=== PATIENT | female | born 1960 ===

== ENCOUNTER 2017-06-11 05:21 | Inpatient (IN) | payer MEDICARE, MEDICAID ==
[2017-06-11 05:22] VITALS: BMI 27.4
[2017-06-11] MEDS ORDERED: Sodium Chloride 0.9% 1,000 ML IV STA ×2 (05:35→14:10)
--- NOTE | 2017-06-11 05:52 | ED PDOC ---
HPI: Abdomen Time Seen by Provider: 06/11/17 05:27 Chief Complaint (Nursing): Abdominal Pain Chief Complaint (Provider): Flank Pain History Per: Patient History/Exam Limitations: no limitations Onset/Duration Of Symptoms: Hrs (1), Sudden Onset Outside of [place] travel?: No Current Symptoms Are (Timing): Still Present Location Of Pain/Discomfort: Other (Left flank pain) Quality Of Discomfort: Sharp, Stabbing Associated Symptoms: Nausea, Vomiting, Back Pain Additional Complaint(s): 56 year old female presents to ED with complaints of left flank pain x1 hour and a past medical history of multiple sclerosis, ITP, HTN, lupus, hypothyroidism, and depression. Patient notes acute left flank pain that radiates to her back and abdomen. Describes the pain as sharp and stabbing. (+) nausea and vomiting x2 episodes (non-bilious, non-bloody). PCP: Norma Li ED Scribe Attestation - Scribe Statement Scribe Attestation: Documented by Scribename acting as a scribe for Ankur Drake MD. Provider Scribe Attestation: All medical record entries made by the Scribe were at my direction and personally dictated by me. I have reviewed the chart and agree that the record accurately reflects my personal performance of the history, physical exam, medical decision making, and the department course for this patient. I have also personally directed, reviewed, and agree with the discharge instructions and disposition. Past Medical History Reviewed: Historical Data, Nursing Documentation, Vital Signs Vital Signs: Last Vital Signs Temp 98.3 F 06/11/17 05:24 Pulse 77 06/11/17 05:24 Resp 16 06/11/17 05:24 BP 123/80 06/11/17 05:24 Pulse Ox 99 06/11/17 06:34 - Medical History PMH: Anemia, Anxiety, Asthma, Back Problems, Depression, HTN, Hypercholesterolemia, Hypothyroidism, Multiple Sclerosis, Pneumonia Denies: Chronic Kidney Disease - Surgical History Surgical History: Endoscopy Denies: No Surg Hx - Family History Family History: States: Unknown Family Hx - Social History Current smoker - smoking cessation education provided: No Ex-Smoker (has not smoked in the last 12 months): No Alcohol: None Drugs: Denies - Immunization History Hx Tetanus Toxoid Vaccination: No Hx Influenza Vaccination: No Hx Pneumococcal Vaccination: No - Home Medications Home Medications: Ambulatory Orders Medication Instructions Recorded Levothyroxine 88 mcg PO DAILY 02/04/14 Hydroxychloroquine Sulfate 200 mg PO BID 03/20/15 [Plaquenil] Lyrica 100 mg PO Q8 02/29/16 Oxycodone HCl/Acetaminophen 10 - 325 mg PO Q8 PRN 02/29/16 Lisinopril [Zestril] 10 mg PO DAILY 09/29/16 Cholecalciferol (Vitamin D3) 50,000 unit PO QWK 10/13/16 [Vitamin D3] Amitriptyline [Elavil] 50 mg PO HS 10/23/16 Prednisone [Inez] 10 mg PO DAILY 10/23/16 Ibuprofen [Motrin Tab] 600 mg PO Q6 #20 tab 04/03/17 - Allergies Allergies/Adverse Reactions: Allergies Allergy/AdvReac Type Severity Reaction Status Date / Time No Known Allergies Allergy Verified 04/03/17 19:06 Review of Systems ROS Statement: Except As Marked, All Systems Reviewed And Found Negative Gastrointestinal: Positive for: Nausea, Vomiting, Abdominal Pain (pain radiates from left flank to diffusely over abdomen) Musculoskeletal: Positive for: Back Pain (left flank pain radiates to back) Physical Exam - Reviewed Nursing Documentation Reviewed: Yes Vital Signs Reviewed: Yes - Physical Exam Appears: Positive for: Non-toxic, Uncomfortable Head Exam: Positive for: ATRAUMATIC, NORMOCEPHALIC Skin: Positive for: Normal Color, Warm, Dry Eye Exam: Positive for: Normal appearance, EOMI, PERRL ENT: Positive for: Normal ENT Inspection Neck: Positive for: Normal Cardiovascular/Chest: Positive for: Regular Rate, Rhythm. Negative for: Bradycardia Respiratory: Positive for: Normal Breath Sounds. Negative for: Respiratory Distress Gastrointestinal/Abdominal: Positive for: Normal Exam, Soft. Negative for: Tenderness, Guarding, Rebound Back: Positive for: Normal Inspection. Negative for: L CVA Tenderness, R CVA Tenderness Extremity: Positive for: Normal ROM. Negative for: Deformity Neurologic/Psych: Positive for: Alert, Oriented. Negative for: Motor/Sensory Deficits - Laboratory Results Result Diagrams: 06/11/17 05:50 06/11/17 05:50 - ECG O2 Sat by Pulse Oximetry: 99 (RA) Pulse Ox Interpretation: Normal Medical Decision Making Medical Decision Makin Initial impression: acute left flank pain Initial plan: * EKG * Labs * Lipase * UPreg * UDip * NS IV * Toradol 10mg IVP * Zofran Inj 4mg IV * UA * Re-eval 0631 * CT A/P * ED OBS ADMISSION See ED OBS note for further documentation. Scribe Attestation: Documented by Ruthie Aguilar acting as a scribe for Ankur Drake MD. Scribe Attestation: All medical record entries made by the Scribe were at my direction and personally dictated by me. I have reviewed the chart and agree that the record accurately reflects my personal performance of the history, physical exam, medical decision making, and the department course for this patient. I have also personally directed, reviewed, and agree with the discharge instructions and disposition. ED OBSERVATION Date of observation admission: 06/11/17 Time of observation admission: :31 - Observation admission statement Patient is being placed in observation because:: Pending CT - Goals of Observation Goals of observation are:: CT results - Progress Note Progress Note: 06/11/17 07:00 Patient will be signed out to Dr. Hu pending CT. Disposition - Clinical Impression Clinical Impression: Abdominal pain - Patient ED Disposition Is Patient to be Admitted: Transfer of Care - Disposition Disposition: Transfer of Care Disposition Time: 06:31 Condition: FAIR Forms: [facility] ([place]) Patient Signed Over To: Gwen Hu (at 0700) Handoff Comments: Pending CT - Pt Status Changed To: Hospital Disposition Of: Observation
[2017-06-11 06:02] LABS: BASO # 0.1 K/uL (0.0-0.2); BASO % 0.5 % (0.0-2.0); EOS # 0.1 K/uL (0.0-0.7); EOS % 0.5 % (0.0-4.0); HEMATOCRIT 38.7 % (34.0-47.0); LYMPH # 1.9 K/uL (1.0-4.3); LYMPH % 12.1 % (20.0-40.0); MEAN CORPUSCULAR HGB CONC 31.7 g/dL (33.0-37.0); MEAN PLATELET VOLUME 12.2 fl (7.2-11.7); MONO # 1.4 K/uL (0.0-0.8); MONO % 8.9 % (0.0-10.0); NEUT # 12.1 K/uL (1.8-7.0); RED CELL DISTRIBUTION WIDTH 13.9 % (11.5-14.5); WHITE BLOOD COUNT 15.5 K/uL (4.8-10.8)
[2017-06-11 06:15] LABS: ALB/GLOB RATIO 1.2 (1.0-2.1); ALKALINE PHOSPHATASE 86 U/L (38-126); ALT/SGPT 55 U/L (9-52); AST/SGOT 109 U/L (14-36); BILIRUBIN,TOTAL 0.8 mg/dl (0.2-1.3); BLOOD UREA NITROGEN 7 mg/dl (7-17); CALCIUM 8.9 mg/dL (8.4-10.2); CARBON DIOXIDE 25 mmol/L (22-30); CHLORIDE 106 mmol/L (98-107); GFR AFRICAN-AMERICAN > 60; GLUCOSE,RANDOM 89 mg/dL (65-105); LIPASE 44 U/L (23-300); POTASSIUM 3.8 MMOL/L (3.6-5.0); SODIUM 140 mmol/l (132-148); TOTAL PROTEIN 6.9 G/DL (6.3-8.2)
--- NOTE | 2017-06-11 07:11 | ED PDOC ---
- Laboratory Results Result Diagrams: 06/12/17 10:30 06/12/17 10:30 - ECG O2 Sat by Pulse Oximetry: 99 (RA) Pulse Ox Interpretation: Normal Medical Decision Making Medical Decision Making: Time: 0700 --Patient transferred from Dr. Drake to al. --Pending ABD CT Scan. Time: 09:48 --Abd and pelvis CT FINDINGS: LOWER THORAX: Bibasilar atelectasis of left greater than right. May also be some concomitant mild bibasilar scarring. Rule out mild fibrosis. No effusion or basilar pneumothorax LIVER: . Liver exhibits normal size measuring approximately 16.7 cm in CC dimension. No obvious hepatic mass collection or calcification. GALLBLADDER AND BILE DUCTS: The gallbladder is physiologically distended. Wall edema and or small amount of pericholecystic fluid. Recommend followup gallbladder ultrasound. No definitive evidence of intraluminal calculi. PANCREAS: The unenhanced pancreas appears grossly unremarkable SPLEEN: Spleen is borderline enlarged measuring over 12 cm in AP dimension. And attenuation pattern without mass collection or calcification. ADRENALS: No adrenal lesions. KIDNEYS AND URETERS: Kidneys demonstrate symmetric size. No evidence of nephrolithiasis or hydronephrosis. BLADDER: Urinary bladder is incompletely distended which presumably accounts for thick- walled appearance. Rule out cystitis. REPRODUCTIVE: Unremarkable as visualized APPENDIX: What is felt to represent a normal appendix best seen on axial image number 105 - 110. No periappendiceal inflammatory changes. BOWEL: Unr evaluation of the bowel is limited due to the lack of oral contrast material. The stomach is incompletely distended which presumably accounts thick- walled appearance. Visualized loops of small bowel exhibit normal contour and caliber. No evidence of acute mechanical small bowel obstruction. Stool and air seen throughout the ascending and transverse colon suggesting mild fecal retention PERITONEUM: Unremarkable. No fluid collection. No free air. LYMPH NODES: Unremarkable. No no significant bulky/ enlarged lymph nodes. VASCULATURE: Unremarkable. No aortic aneurysm. BONES: Minor multilevel degenerative spondylosis of the lumbar and thoracic spine. OTHER FINDINGS: None. IMPRESSION: Gallbladder wall thickening/ edema versus pericholecystic fluid. Rule out acute acalculous cholecystitis. Recommend followup gallbladder ultrasound. Borderline splenomegaly. These findings were discussed with Dr. Hu at approximately 9:45 a.m. --VBG Shock Panel --Piperacillin 3.375 gm --Blood Culture --Abdomen US 1330 Discussed the case with Dr Egan who will be on consult. He agrees with the admission to medical service for IV abx and surgical intervention. Scribe Attestation: Documented by Shanika Barney, acting as a scribe for Gwen Hu MD. Provider Scribe Attestation: All medical record entries made by the Scribe were at my direction and personally dictated by me. I have reviewed the chart and agree that the record accurately reflects my personal performance of the history, physical exam, medical decision making, and the department course for this patient. I have also personally directed, reviewed, and agree with the discharge instructions and disposition. Disposition Discussed With : Phillip Liz Counseled Patient/Family Regarding: Studies Performed, Diagnosis - Clinical Impression Clinical Impression: Abdominal pain, Acute cholecystitis - POA Present On Arrival: None - Disposition Disposition: Admitted as In-Patient Disposition Time: 14:00 Condition: FAIR
[2017-06-11 08:09] LABS: RBC URINE < 1 /hpf (0-3); URINE BACTERIA RARE (<OCC); URINE BILIRUBIN NEGATIVE (NEGATIVE); URINE BLOOD NEGATIVE (NEGATIVE); URINE COLOR YELLOW (YELLOW); URINE GLUCOSE (UA) NEG (Normal); URINE KETONE NEGATIVE (NEGATIVE); URINE LEUKOCYTE ESTERASE NEG Leu/uL (Negative); URINE PROTEIN NEGATIVE (NEGATIVE); URINE UROBILINOGEN 0.2-1.0 mg/dL (0.2-1.0); WBC URINE 3 /hpf (0-5)
[2017-06-11] MEDS ORDERED: Piperacillin/Tazobact 3.375 GM in Sodium Chloride 0.9% 100 ML IVPB STA (09:48)
--- NOTE | 2017-06-11 09:49 | CT ---
PROCEDURE: CT abdomen and pelvis dated 06/11/2017 Renal HISTORY: renal colic COMPARISON: None. TECHNIQUE: Contiguous axial images of the abdomen and pe pelvis performed without oral or intravenous contrast. Coronal and Sagittal reformats generated. Radiation dose: Total exam DLP = 948.1 mGy-cm. This CT exam was performed using one or more of the following dose reduction techniques: Automated exposure control, adjustment of the mA and/or kV according to patient size, and/or use of iterative reconstruction technique. FINDINGS: LOWER THORAX: Bibasilar atelectasis of left greater than right. May also be some concomitant mild bibasilar scarring. Rule out mild fibrosis. No effusion or basilar pneumothorax LIVER: . Liver exhibits normal size measuring approximately 16.7 cm in CC dimension. No obvious hepatic mass collection or calcification. GALLBLADDER AND BILE DUCTS: The gallbladder is physiologically distended. Wall edema and or small amount of pericholecystic fluid. Recommend followup gallbladder ultrasound. No definitive evidence of intraluminal calculi. PANCREAS: The unenhanced pancreas appears grossly unremarkable SPLEEN: Spleen is borderline enlarged measuring over 12 cm in AP dimension. And attenuation pattern without mass collection or calcification. ADRENALS: No adrenal lesions. KIDNEYS AND URETERS: Kidneys demonstrate symmetric size. No evidence of nephrolithiasis or hydronephrosis. BLADDER: Urinary bladder is incompletely distended which presumably accounts for thick-walled appearance. Rule out cystitis. REPRODUCTIVE: Unremarkable as visualized APPENDIX: What is felt to represent a normal appendix best seen on axial image number [id number] 110. No periappendiceal inflammatory changes. BOWEL: Unr evaluation of the bowel is limited due to the lack of oral contrast material. The stomach is incompletely distended which presumably accounts thick-walled appearance. Visualized loops of small bowel exhibit normal contour and caliber. No evidence of acute mechanical small bowel obstruction. Stool and air seen throughout the ascending and transverse colon suggesting mild fecal retention PERITONEUM: Unremarkable. No fluid collection. No free air. LYMPH NODES: Unremarkable. No no significant bulky/ enlarged lymph nodes. VASCULATURE: Unremarkable. No aortic aneurysm. BONES: Minor multilevel degenerative spondylosis of the lumbar and thoracic spine. OTHER FINDINGS: None. IMPRESSION: Gallbladder wall thickening/ edema versus pericholecystic fluid. Rule out acute acalculous cholecystitis. Recommend followup gallbladder ultrasound. Borderline splenomegaly. These findings were discussed with Dr. Hu at approximately 9:45 a.m.
[2017-06-11] MEDS ORDERED: Piperacillin/Tazobact 3.375 gm Inj IVPB ONE (10:09)
[2017-06-11 10:11] LABS: VENOUS BLOOD GAS BASE EXCESS 2.5 mmol/L (0.0-2.0); VENOUS BLOOD GAS PCO2 53 mmHg (40-60); VENOUS BLOOD PH 7.35 (7.32-7.43)
--- NOTE | 2017-06-11 10:58 | CARD ---
APPROVED REPORT EKG Measurement Heart [id number] <Conclusion> Normal sinus rhythm Left axis deviation Nonspecific T wave abnormality Abnormal ECG
--- NOTE | 2017-06-11 14:14 | US ---
HISTORY: Right-sided flank pain. COMPARISON: None. TECHNIQUE: Sonographic evaluation of the right upper quadrant of the abdomen. FINDINGS: LIVER: Liver exhibits normal size measuring approximately 15.4 cm in CC dimension . GALLBLADDER: Gallbladder wall is thickened and edematous in appearance measuring up to 8 mm. Multiple intraluminal shadowing gallbladder calculi. While there is no sonographic Castañeda sign, the possibility of early acute cholecystitis must be excluded. COMMON BILE DUCT: Common bile duct is dilated measuring approximately 8.6 mm with multiple layering calculi. PANCREAS: Unremarkable as visualized. No mass. No ductal dilatation. RIGHT KIDNEY: Measures approximately 9.9 x 4.4 x 5.4 cm in length. Normal echogenicity. No calculus, mass, or hydronephrosis. AORTA: No aneurysmal dilatation. IVC: Unremarkable. OTHER FINDINGS: None . IMPRESSION: Multiple intraluminal gallbladder calculi. Gallbladder wall thickening and edema. Rule out early acute cholecystitis. . Dilatation common bile duct.
--- NOTE | 2017-06-11 16:22 | CP.PCM.CON ---
<Juanis Clark - Last Filed: 06/11/17 16:15> History of Present Illness - History of Present Illness History of Present Illness: General Surgery - Dr. Lester 56yo F w/ hx of Lupus, MS, Hypothyroid, HTN, and ITP, presents w/ LUQ abdominal pain radiating to the back since 2am this morning. Pt states that she woke up with the pain and it continued to get progressively worse throughout the night. She describes it as a sharp pain located in the LUQ abdomen and spreading through the rest of the abdomen, radiating to the back, 810. She had associated nausea and vomited 2x gastric contents. Pt denies ever having this pain before. She admits to chills, denies any Fevers, SOB/Chest pain, Hematemesis, Hematochezia, Dysuria, Hematuria, Diarrhea, Constipation. PMH: Lupus, MS, Hypothyroid, HTN, ITP PSH: Csection, R Wrist surgery, Colonoscopy and EGD Meds as per chart, includes prednisone daily NKDA Pt was seen in the ED. Vitals stable and wnl. Her labs significant for WBC of 15.5, Platelets 63, mildly elevated AST/ALT, otherwise unremarkable. Abdominal CT was done and showed borderline splenomegaly and a dilated GB with wall thickening. An U/S was done to further evaluate the GB and showed Stones, Wall thickening and Edema, CBD of 8.6mm and stones within the CBD. Review of Systems - Review of Systems All systems: reviewed and no additional remarkable complaints except (as per HPI ) Past Patient History - Infectious Disease Hx of Infectious Diseases: None - Past Medical History & Family History Past Medical History?: Yes - Past Social History Alcohol: None Drugs: Denies - CARDIAC Hx Cardiac Disorders: Yes - PULMONARY Hx Asthma: Yes Hx Pneumonia: Yes - NEUROLOGICAL Hx Multiple Sclerosis: Yes - HEENT Hx HEENT Problems: Yes - RENAL Hx Chronic Kidney Disease: No - ENDOCRINE/METABOLIC Hx Hypothyroidism: Yes - HEMATOLOGICAL/ONCOLOGICAL Hx Anemia: Yes - INTEGUMENTARY Hx Dermatological Problems: No - MUSCULOSKELETAL/RHEUMATOLOGICAL Hx Musculoskeletal Disorders: Yes Hx Back Pain: Yes Hx Falls: Yes Other/Comment: MS - GASTROINTESTINAL Hx Gastrointestinal Disorders: No Hx Gastroesophageal Reflux: Yes - GENITOURINARY/GYNECOLOGICAL Hx Genitourinary Disorders: No - PSYCHIATRIC Hx Anxiety: Yes Hx Depression: Yes - SURGICAL HISTORY Hx Surgeries: Yes Hx Section: Yes Hx Tubal Ligation: Yes Other/Comment: EPIDURAL - ANESTHESIA Hx Anesthesia: Yes Hx Anesthesia Reactions: No Hx Malignant Hyperthermia: No Meds Allergies/Adverse Reactions: Allergies Allergy/AdvReac Type Severity Reaction Status Date / Time No Known Allergies Allergy Verified 04/03/17 19:06 Physical Exam - Constitutional Appears: No Acute Distress - Head Exam Head Exam: ATRAUMATIC, NORMAL INSPECTION, NORMOCEPHALIC - Eye Exam Eye Exam: Normal appearance - ENT Exam ENT Exam: Mucous Membranes Dry - Respiratory Exam Respiratory Exam: NORMAL BREATHING PATTERN. absent: Respiratory Distress - Cardiovascular Exam Cardiovascular Exam: REGULAR RHYTHM - GI/Abdominal Exam GI & Abdominal Exam: Soft, Tenderness (RUQ + Castañeda's sign; Also Tender in the LUQ and L Flank w/ CVA tenderness). absent: Distended, Firm, Guarding - Extremities Exam Extremities exam: Positive for: normal inspection. Negative for: pedal edema - Back Exam Back exam: CVA tenderness (L) - Neurological Exam Neurological exam: Alert, Oriented x3 - Psychiatric Exam Psychiatric exam: Normal Affect, Normal Mood - Skin Skin Exam: Dry, Intact Results - Vital Signs Recent Vital Signs: Last Vital Signs Temp 98.8 F 06/11/17 16:11 Pulse 85 06/11/17 16:11 Resp 18 06/11/17 16:11 BP 135/87 06/11/17 16:11 Pulse Ox 99 06/11/17 15:03 - Labs Result Diagrams: 06/11/17 05:50 06/11/17 05:50 Labs: Laboratory Results - last 24 hr 06/11/17 06/11/17 07:30 10:03 pO2 28 L VBG pH 7.35 VBG pCO2 53 VBG HCO3 25.6 VBG Total CO2 30.9 H VBG O2 Sat (Calc) 60.7 VBG Base Excess 2.5 H VBG Potassium 4.1 Sodium 140.0 Chloride 109.0 H Glucose 90 Lactate 1.7 FiO2 21.0 Venous Blood Potassium 4.1 Urine Color Yellow Urine Clarity Clear Urine pH 8.0 Ur Specific [place] 1.005 Urine Protein Negative Urine Glucose (UA) Neg Urine Ketones Negative Urine Blood Negative Urine Nitrate Negative Urine Bilirubin Negative Urine Urobilinogen 0.2-1.0 Ur Leukocyte Esterase Neg Urine RBC (Auto) < 1 Urine Microscopic WBC 3 Ur Squamous Epith Cells 1 Urine Bacteria Rare - Imaging and Cardiology CT scan - abdomen Status: Image reviewed by me, Report reviewed by me US - abdomen Status: Image reviewed by me, Report reviewed by me Assessment & Plan - Assessment and Plan (Free Text) Assessment: 56 yo F w/ Lupus, MS, HTN, Hypothyroid, ITP on prednisone, w/ abdominal pain and U/S c/w cholecystitis and choledocholithiasis -Maintain NPO for now, poss. CLD tomorrow pending course -IVF hydration -IV Abx -Pain control prn and anti-emetics -Recc. GI consult for dilated CBD w/ stones seen on U/S -Hematology consult reg. the ITP and pre-op optimization -Will plan for cholecystectomy once pt. is medically optimized for surgery DW Dr. Tayler Clark PGY3 <Benji Lester - Last Filed: 06/12/17 17:16> Meds - Medications Medications: Current Medications Clonazepam (Klonopin) 1 mg PO TID PRN PRN Reason: Anxiety Duloxetine HCl (Cymbalta) 30 mg PO HS [facility] Last Admin: 06/11/17 22:39 Dose: 30 mg Ergocalciferol (Drisdol 50,000 Intl Units Cap) 1 cap PO MON [facility] Escitalopram Oxalate (Lexapro) 10 mg PO DAILY [facility] Last Admin: 06/12/17 09:58 Dose: 10 mg Home Med (Calcium Carbonate [Caltrate]) 1 tab PO DAILY [facility] Home Med (Methylnaltrexone [place] [Relistor]) 450 mg PO DAILY PRN PRN Reason: Constipation Hydroxychloroquine Sulfate (Plaquenil) 200 mg PO BID [facility] Last Admin: 06/12/17 17:12 Dose: 200 mg Piperacillin Sod/Tazobactam (Sod 3.375 gm/ Sodium Chloride) 100 mls @ 100 mls/ hr IVPB Q6 [facility] Last Admin: 06/12/17 17:12 Dose: 100 mls/hr Sodium Chloride (Sodium Chloride 0.9%) 1,000 mls @ 70 mls/hr IV .[id number] [facility] Last Admin: 06/12/17 09:58 Dose: Not Given Levothyroxine Sodium (Synthroid) 88 mcg PO 0630 [facility] Last Admin: 06/12/17 09:59 Dose: 88 mcg Lisinopril (Zestril) 10 mg PO DAILY [facility] Last Admin: 06/12/17 09:58 Dose: 10 mg Morphine Sulfate (Morphine) 2 mg IVP Q4 PRN PRN Reason: Pain, moderate (4-7) Last Admin: 06/12/17 04:00 Dose: 2 mg Multivitamins/Minerals (Therapeutic-M Tab) 1 tab PO DAILY [facility] Last Admin: 06/12/17 09:58 Dose: 1 tab Ondansetron HCl (Zofran Inj) 4 mg IVP Q4 PRN PRN Reason: Nausea/Vomiting Oxycodone HCl (Oxycodone Immediate Release Tab) 15 mg PO Q8H PRN PRN Reason: Pain, severe (8-10) Last Admin: 06/12/17 14:30 Dose: 15 mg Pantoprazole Sodium (Protonix Ec Tab) 40 mg PO DAILY [facility] Last Admin: 06/12/17 09:58 Dose: 40 mg Polyethylene Glycol (Miralax) 17 gm PO DAILY [facility] Last Admin: 06/12/17 15:12 Dose: 17 gm Prednisone (Prednisone Tab) 5 mg PO DAILY [facility] Last Admin: 06/12/17 09:58 Dose: 5 mg Pregabalin (Lyrica) 100 mg PO Q8@0600,1400,2200 [facility] Last Admin: 06/12/17 14:31 Dose: 100 mg Results - Vital Signs Recent Vital Signs: Last Vital Signs Temp 98.1 F 06/12/17 16:23 Pulse 79 06/12/17 16:23 Resp 20 06/12/17 16:23 BP 119/78 06/12/17 16:23 Pulse Ox 99 06/12/17 16:29 - Labs Result Diagrams: 06/12/17 10:30 06/12/17 10:30 Labs: Laboratory Results - last 24 hr 06/12/17 06/12/17 06/12/17 10:30 10:30 10:30 WBC 9.6 RBC 4.31 Hgb 11.3 L Hct 35.5 MCV 82.3 MCH 26.1 L MCHC 31.8 L RDW 14.1 Plt Count 45 L PT 14.3 H INR 1.4 H Sodium 136 Potassium 3.9 Chloride 107 Carbon Dioxide 20 L Anion Gap 13 BUN 8 Creatinine 0.7 Est GFR ( Amer) > 60 Est GFR (Non-Af Amer) > 60 Random Glucose 66 Calcium 7.8 L Total Bilirubin 1.4 H AST 151 H D ALT 173 H D Alkaline Phosphatase 143 H D Total Protein 5.9 L Albumin 3.2 L Globulin 2.6 Albumin/Globulin Ratio 1.2 Triglycerides 80 Cholesterol 183 LDL Cholesterol Direct 138 H HDL Cholesterol 46 Vitamin B12 809 Thyroxine (T4) 8.45 Total T3 0.872 L T3 Uptake TSH 3rd Generation 2.30 06/12/17 10:30 WBC RBC Hgb Hct MCV MCH MCHC RDW Plt Count PT INR Sodium Potassium Chloride Carbon Dioxide Anion Gap BUN Creatinine Est GFR ( Amer) Est GFR (Non-Af Amer) Random Glucose Calcium Total Bilirubin AST ALT Alkaline Phosphatase Total Protein Albumin Globulin Albumin/Globulin Ratio Triglycerides Cholesterol LDL Cholesterol Direct HDL Cholesterol Vitamin B12 818 Thyroxine (T4) 8.57 Total T3 0.709 L T3 Uptake 35.2 TSH 3rd Generation Attending/Attestation - Attestation I have personally seen and examined this patient.: Yes I have fully participated in the care of the patient.: Yes I have reviewed all pertinent clinical information: Yes Notes (Text): 06/12/17 17:14 Pt was seen and examined at bedside Agree with above note and assessment Pt with ITP and Cholelithiasis MRCP report Repeat LFTS C.w IV antibiotics Plan d.w pt in detail Risk and benefit explained in detail.
[2017-06-11] MEDS ORDERED: Sodium Chloride 0.9% 1,000 ML IV SCH (16:45)
[2017-06-11] MEDS ORDERED: METHYLNALTREXONE BROMIDE 450 MG PO PRN (18:42)
[2017-06-11] MEDS ORDERED: Ergocalciferol 50,000 Intl Units Cap PO SCH (18:45)
[2017-06-11] MEDS: oxyCODONE 5 mg Immediate Release Tab PO PRN (20:35)
[2017-06-11] MEDS: Piperacillin/Tazobact 3.375 GM in Sodium Chloride 0.9% 100 ML IVPB SCH (22:39)
[2017-06-12] MEDS: Piperacillin/Tazobact 3.375 GM in Sodium Chloride 0.9% 100 ML IVPB SCH ×4 (04:02→21:35)
[2017-06-12] MEDS: Levothyroxine 88 MCG TAB PO SCH ×2 (06:48→09:59)
[2017-06-12] MEDS: Sodium Chloride 0.9% 1,000 ML IV SCH (09:58)
[2017-06-12] MEDS: Multivitamin With Minerals Tab PO SCH (09:58)
[2017-06-12] MEDS: Pantoprazole 40 mg EC Tab PO SCH (09:58)
[2017-06-12 10:51] LABS: HEMATOCRIT 35.5 % (34.0-47.0); MEAN CELL VOLUME 82.3 fl (81.0-99.0); MEAN CORPUSCULAR HEMOGLOBIN 26.1 pg (27.0-31.0); MEAN CORPUSCULAR HGB CONC 31.8 g/dL (33.0-37.0); RED CELL DISTRIBUTION WIDTH 14.1 % (11.5-14.5); WHITE BLOOD COUNT 9.6 K/uL (4.8-10.8)
[2017-06-12 11:05] LABS: ALB/GLOB RATIO 1.2 (1.0-2.1); ALKALINE PHOSPHATASE 143 U/L (38-126); ALT/SGPT 173 U/L (9-52); AST/SGOT 151 U/L (14-36); BILIRUBIN,TOTAL 1.4 mg/dl (0.2-1.3); BLOOD UREA NITROGEN 8 mg/dl (7-17); CALCIUM 7.8 mg/dL (8.4-10.2); CARBON DIOXIDE 20 mmol/L (22-30); CHLORIDE 107 mmol/L (98-107); CHOLESTEROL 183 mg/dL (0-199); GFR AFRICAN-AMERICAN > 60; GLUCOSE,RANDOM 66 mg/dL (65-105); POTASSIUM 3.9 MMOL/L (3.6-5.0); SODIUM 136 mmol/l (132-148); TOTAL PROTEIN 5.9 G/DL (6.3-8.2)
[2017-06-12 11:21] LABS: T4 8.45 ug/dl (5.5-11.0)
[2017-06-12 11:23] LABS: T3 UPTAKE 35.2 % (23.0-41.0); T4 8.57 ug/dl (5.5-11.0)
--- NOTE | 2017-06-12 13:12 | CP.PCM.CON ---
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 Patient describes sudden onset left upper/epigastric abdominal pain radiating to back yesterday morning. Associated two episodes of bilious vomiting. Denies hematemesis, diarrhea, constipation, hematochezia, melena, unintentional weight loss, fever, chills, sweats, pruritis, or yellowing of skin /eyes. Prior EGD 09/2016 showed margie esophagitis s/p Diflucan course. Prior colonoscopy 04/2016 showed internal hemorhoids. Family- denies stomach cancer, colon cancer Social- denies tobacco, alcohol, illicit drug use Surgery- right wrist, C-sectionx2, 09/2016 left L3-5 nerve block and left sacroiliac injection Review of Systems - Review of Systems Review of Systems: 12-point review of systems negative except for as above Past Patient History - Infectious Disease Hx of Infectious Diseases: None - Past Medical History & Family History Past Medical History?: Yes - Past Social History Smoking Status: Current Some Days Smoker - CARDIAC Hx Cardiac Disorders: Yes - PULMONARY Hx Asthma: Yes Hx Pneumonia: Yes - NEUROLOGICAL Hx Multiple Sclerosis: Yes - HEENT Hx HEENT Problems: Yes - RENAL Hx Chronic Kidney Disease: No - ENDOCRINE/METABOLIC Hx Hypothyroidism: Yes - HEMATOLOGICAL/ONCOLOGICAL Hx Anemia: Yes - INTEGUMENTARY Hx Dermatological Problems: No - MUSCULOSKELETAL/RHEUMATOLOGICAL Hx Musculoskeletal Disorders: Yes Hx Back Pain: Yes Hx Falls: Yes Other/Comment: MS - GASTROINTESTINAL Hx Gastrointestinal Disorders: No Hx Gastroesophageal Reflux: Yes - GENITOURINARY/GYNECOLOGICAL Hx Genitourinary Disorders: No - PSYCHIATRIC Hx Anxiety: Yes Hx Depression: Yes Hx Substance Use: No - SURGICAL HISTORY Hx Surgeries: Yes Hx Section: Yes Hx Tubal Ligation: Yes Other/Comment: EPIDURAL - ANESTHESIA Hx Anesthesia: Yes Hx Anesthesia Reactions: No Hx Malignant Hyperthermia: No Meds Allergies/Adverse Reactions: Allergies Allergy/AdvReac Type Severity Reaction Status Date / Time No Known Allergies Allergy Verified 04/03/17 19:06 - Medications Medications: Current Medications Clonazepam (Klonopin) 1 mg PO TID PRN PRN Reason: Anxiety Duloxetine HCl (Cymbalta) 30 mg PO HS [facility] Last Admin: 06/11/17 22:39 Dose: 30 mg Ergocalciferol (Drisdol 50,000 Intl Units Cap) 1 cap PO MON [facility] Escitalopram Oxalate (Lexapro) 10 mg PO DAILY [facility] Last Admin: 06/12/17 09:58 Dose: 10 mg Home Med (Calcium Carbonate [Caltrate]) 1 tab PO DAILY [facility] Home Med (Methylnaltrexone [place] [Relistor]) 450 mg PO DAILY PRN PRN Reason: Constipation Hydroxychloroquine Sulfate (Plaquenil) 200 mg PO BID [facility] Last Admin: 06/12/17 09:56 Dose: 200 mg Piperacillin Sod/Tazobactam (Sod 3.375 gm/ Sodium Chloride) 100 mls @ 100 mls/ hr IVPB Q6 [facility] Last Admin: 06/12/17 09:57 Dose: 100 mls/hr Sodium Chloride (Sodium Chloride 0.9%) 1,000 mls @ 70 mls/hr IV .[id number] [facility] Last Admin: 06/12/17 09:58 Dose: Not Given Levothyroxine Sodium (Synthroid) 88 mcg PO 0630 [facility] Last Admin: 06/12/17 09:59 Dose: 88 mcg Lisinopril (Zestril) 10 mg PO DAILY [facility] Last Admin: 06/12/17 09:58 Dose: 10 mg Morphine Sulfate (Morphine) 2 mg IVP Q4 PRN PRN Reason: Pain, moderate (4-7) Last Admin: 06/12/17 04:00 Dose: 2 mg Multivitamins/Minerals (Therapeutic-M Tab) 1 tab PO DAILY [facility] Last Admin: 06/12/17 09:58 Dose: 1 tab Ondansetron HCl (Zofran Inj) 4 mg IVP Q4 PRN PRN Reason: Nausea/Vomiting Oxycodone HCl (Oxycodone Immediate Release Tab) 15 mg PO Q8H PRN PRN Reason: Pain, severe (8-10) Last Admin: 06/11/17 20:35 Dose: 15 mg Pantoprazole Sodium (Protonix Ec Tab) 40 mg PO DAILY [facility] Last Admin: 06/12/17 09:58 Dose: 40 mg Prednisone (Prednisone Tab) 5 mg PO DAILY [facility] Last Admin: 06/12/17 09:58 Dose: 5 mg Pregabalin (Lyrica) 100 mg PO Q8@0600,1400,2200 [facility] Last Admin: 06/12/17 06:47 Dose: 100 mg Physical Exam - Constitutional Appears: Non-toxic, No Acute Distress, Chronically Ill - Head Exam Head Exam: ATRAUMATIC, NORMOCEPHALIC - Eye Exam Eye Exam: EOMI, PERRL Pupil Exam: PERRL. absent: Miosis, Mydriatic - ENT Exam ENT Exam: Mucous Membranes Moist, Normal Oropharynx - Neck Exam Neck exam: Positive for: Full Rom, Normal Inspection - Respiratory Exam Respiratory Exam: Clear to Auscultation Bilateral. absent: Rales, Rhonchi, Wheezes - Cardiovascular Exam Cardiovascular Exam: RRR, +S1, +S2. absent: Gallop, Rubs - GI/Abdominal Exam GI & Abdominal Exam: Normal Bowel Sounds, Soft, Tenderness. absent: Distended, Firm, Guarding, Organomegaly, Rebound, Rigid Additional comments: LUQ/epigastric discomfort to palpation - Extremities Exam Extremities exam: Positive for: normal inspection. Negative for: pedal edema - Neurological Exam Neurological exam: Alert - Psychiatric Exam Psychiatric exam: Normal Affect, Normal Mood - Skin Skin Exam: Dry, Intact, Normal Color, Warm Results - Vital Signs Recent Vital Signs: Last Vital Signs Temp 99.1 F 06/12/17 09:00 Pulse 86 06/12/17 09:58 Resp 20 06/12/17 09:00 BP 114/62 06/12/17 09:58 Pulse Ox 95 06/12/17 09:00 - Labs Result Diagrams: 06/12/17 10:30 06/12/17 10:30 Labs: Laboratory Results - last 24 hr 06/12/17 06/12/17 06/12/17 10:30 10:30 10:30 WBC 9.6 RBC 4.31 Hgb 11.3 L Hct 35.5 MCV 82.3 MCH 26.1 L MCHC 31.8 L RDW 14.1 Plt Count 45 L PT 14.3 H INR 1.4 H Sodium 136 Potassium 3.9 Chloride 107 Carbon Dioxide 20 L Anion Gap 13 BUN 8 Creatinine 0.7 Est GFR ( Amer) > 60 Est GFR (Non-Af Amer) > 60 Random Glucose 66 Calcium 7.8 L Total Bilirubin 1.4 H AST 151 H D ALT 173 H D Alkaline Phosphatase 143 H D Total Protein 5.9 L Albumin 3.2 L Globulin 2.6 Albumin/Globulin Ratio 1.2 Triglycerides 80 Cholesterol 183 LDL Cholesterol Direct 138 H HDL Cholesterol 46 Vitamin B12 809 Thyroxine (T4) 8.45 Total T3 0.872 L T3 Uptake TSH 3rd Generation 2.30 06/12/17 10:30 WBC RBC Hgb Hct MCV MCH MCHC RDW Plt Count PT INR Sodium Potassium Chloride Carbon Dioxide Anion Gap BUN Creatinine Est GFR ( Amer) Est GFR (Non-Af Amer) Random Glucose Calcium Total Bilirubin AST ALT Alkaline Phosphatase Total Protein Albumin Globulin Albumin/Globulin Ratio Triglycerides Cholesterol LDL Cholesterol Direct HDL Cholesterol Vitamin B12 818 Thyroxine (T4) 8.57 Total T3 0.709 L T3 Uptake 35.2 TSH 3rd Generation Assessment & Plan - Assessment and Plan (Free Text) Assessment: 56 year old female with history of Hypertension, Multiple sclerosis, Hypothyroidism, Lupus on Plaquenil, and ITP on Prednisone presenting with abdominal pain. Prior EGD 09/2016 showed margie esophagitis s/p Diflucan course. Active treatment of calculous cholecystitis complicated by choledocholithiasis on CT A/P and Ultrasound. Prior colonoscopy 04/2016 showed internal hemorrhoids. Plan: >MRCP reviewed- sludge/calculi in CBD >awaiting final read of MRCP >continue Zosyn >clear liquid diet as tolerated >tentative plan for EUS/ERCP Wednesday at [facility] >will require cholecystectomy- surgery managing >daily LFTs, iNR >low platelets, held one pool of platelets to transfuse wednesday morning >monitor hemodynamics >will follow clinical course <Nga NUNEZ,Konstantin - Last Filed: 06/12/17 18:20> Meds - Medications Medications: Current Medications Clonazepam (Klonopin) 1 mg PO TID PRN PRN Reason: Anxiety Duloxetine HCl (Cymbalta) 30 mg PO HS [facility] Last Admin: 06/11/17 22:39 Dose: 30 mg Ergocalciferol (Drisdol 50,000 Intl Units Cap) 1 cap PO MON [facility] Escitalopram Oxalate (Lexapro) 10 mg PO DAILY [facility] Last Admin: 06/12/17 09:58 Dose: 10 mg Home Med (Calcium Carbonate [Caltrate]) 1 tab PO DAILY [facility] Home Med (Methylnaltrexone [place] [Relistor]) 450 mg PO DAILY PRN PRN Reason: Constipation Hydroxychloroquine Sulfate (Plaquenil) 200 mg PO BID [facility] Last Admin: 06/12/17 17:12 Dose: 200 mg Piperacillin Sod/Tazobactam (Sod 3.375 gm/ Sodium Chloride) 100 mls @ 100 mls/ hr IVPB Q6 [facility] Last Admin: 06/12/17 17:12 Dose: 100 mls/hr Sodium Chloride (Sodium Chloride 0.9%) 1,000 mls @ 70 mls/hr IV .[id number] [facility] Last Admin: 06/12/17 09:58 Dose: Not Given Levothyroxine Sodium (Synthroid) 88 mcg PO 0630 [facility] Last Admin: 06/12/17 09:59 Dose: 88 mcg Lisinopril (Zestril) 10 mg PO DAILY [facility] Last Admin: 06/12/17 09:58 Dose: 10 mg Morphine Sulfate (Morphine) 2 mg IVP Q4 PRN PRN Reason: Pain, moderate (4-7) Last Admin: 06/12/17 04:00 Dose: 2 mg Multivitamins/Minerals (Therapeutic-M Tab) 1 tab PO DAILY [facility] Last Admin: 06/12/17 09:58 Dose: 1 tab Ondansetron HCl (Zofran Inj) 4 mg IVP Q4 PRN PRN Reason: Nausea/Vomiting Oxycodone HCl (Oxycodone Immediate Release Tab) 15 mg PO Q8H PRN PRN Reason: Pain, severe (8-10) Last Admin: 06/12/17 14:30 Dose: 15 mg Pantoprazole Sodium (Protonix Ec Tab) 40 mg PO DAILY [facility] Last Admin: 06/12/17 09:58 Dose: 40 mg Polyethylene Glycol (Miralax) 17 gm PO DAILY [facility] Last Admin: 06/12/17 15:12 Dose: 17 gm Prednisone (Prednisone Tab) 5 mg PO DAILY [facility] Last Admin: 06/12/17 09:58 Dose: 5 mg Pregabalin (Lyrica) 100 mg PO Q8@0600,1400,2200 [facility] Last Admin: 06/12/17 14:31 Dose: 100 mg Results - Vital Signs Recent Vital Signs: Last Vital Signs Temp 98.1 F 06/12/17 16:23 Pulse 79 06/12/17 16:23 Resp 20 06/12/17 16:23 BP 119/78 06/12/17 16:23 Pulse Ox 99 06/12/17 16:29 - Labs Result Diagrams: 06/12/17 10:30 06/12/17 10:30 Labs: Laboratory Results - last 24 hr 06/12/17 06/12/17 06/12/17 10:30 10:30 10:30 WBC 9.6 RBC 4.31 Hgb 11.3 L Hct 35.5 MCV 82.3 MCH 26.1 L MCHC 31.8 L RDW 14.1 Plt Count 45 L PT 14.3 H INR 1.4 H Sodium 136 Potassium 3.9 Chloride 107 Carbon Dioxide 20 L Anion Gap 13 BUN 8 Creatinine 0.7 Est GFR ( Amer) > 60 Est GFR (Non-Af Amer) > 60 Random Glucose 66 Calcium 7.8 L Total Bilirubin 1.4 H AST 151 H D ALT 173 H D Alkaline Phosphatase 143 H D Total Protein 5.9 L Albumin 3.2 L Globulin 2.6 Albumin/Globulin Ratio 1.2 Triglycerides 80 Cholesterol 183 LDL Cholesterol Direct 138 H HDL Cholesterol 46 Vitamin B12 809 Thyroxine (T4) 8.45 Total T3 0.872 L T3 Uptake TSH 3rd Generation 2.30 06/12/17 10:30 WBC RBC Hgb Hct MCV MCH MCHC RDW Plt Count PT INR Sodium Potassium Chloride Carbon Dioxide Anion Gap BUN Creatinine Est GFR ( Amer) Est GFR (Non-Af Amer) Random Glucose Calcium Total Bilirubin AST ALT Alkaline Phosphatase Total Protein Albumin Globulin Albumin/Globulin Ratio Triglycerides Cholesterol LDL Cholesterol Direct HDL Cholesterol Vitamin B12 818 Thyroxine (T4) 8.57 Total T3 0.709 L T3 Uptake 35.2 TSH 3rd Generation Attending/Attestation - Attestation I have personally seen and examined this patient.: Yes I have fully participated in the care of the patient.: Yes I have reviewed all pertinent clinical information: Yes Notes (Text): 06/12/17 18:18 Patient seen with KELLY napier on rounds. Known to me from outpatient visits. In a nutshell this is a 56 year old female with history of Hypertension, Multiple sclerosis, Hypothyroidism, Lupus on Plaquenil, and ITP on Prednisone presenting with abdominal pain s/p EGD 09/2016 showed margie esophagitis s/p two week course of Diflucan. Currently imaging concerning for choledocholithaisis pending MRCP formal read. Sludge and calculi on imaging. Daily LFT and lipase. Will schedule EUS/ ERCP for Wednesday. Clear liquid diet. Will continue antibiotics
[2017-06-12] MEDS: oxyCODONE 5 mg Immediate Release Tab PO PRN (14:30)
[2017-06-12] MEDS: POLYETHYLENE GLYCOL 3350 17 GM/Dose PACKET PO SCH (15:12)
--- NOTE | 2017-06-12 18:36 | CP.PCM.PN ---
<Sammy Ortiz - Last Filed: 06/12/17 18:34> Subjective - Date & Time of Evaluation Date of Evaluation: 06/12/17 Time of Evaluation: 18:35 - Subjective Subjective: Surgery Pt s&e. NAEON. Denies F/C/N/V/D/Cp/SOB. + amb, + void. Pt is thirsty. Objective - Vital Signs/Intake and Output Vital Signs (last 24 hours): Temp Pulse Resp BP Pulse Ox 98.1 F 79 20 119/78 99 06/12/17 16:23 06/12/17 16:23 06/12/17 16:23 06/12/17 16:23 06/12/17 16:29 - Medications Medications: Current Medications Clonazepam (Klonopin) 1 mg PO TID PRN PRN Reason: Anxiety Duloxetine HCl (Cymbalta) 30 mg PO HS [facility] Last Admin: 06/11/17 22:39 Dose: 30 mg Ergocalciferol (Drisdol 50,000 Intl Units Cap) 1 cap PO MON [facility] Escitalopram Oxalate (Lexapro) 10 mg PO DAILY [facility] Last Admin: 06/12/17 09:58 Dose: 10 mg Home Med (Calcium Carbonate [Caltrate]) 1 tab PO DAILY [facility] Home Med (Methylnaltrexone [place] [Relistor]) 450 mg PO DAILY PRN PRN Reason: Constipation Hydroxychloroquine Sulfate (Plaquenil) 200 mg PO BID [facility] Last Admin: 06/12/17 17:12 Dose: 200 mg Piperacillin Sod/Tazobactam (Sod 3.375 gm/ Sodium Chloride) 100 mls @ 100 mls/ hr IVPB Q6 [facility] Last Admin: 06/12/17 17:12 Dose: 100 mls/hr Sodium Chloride (Sodium Chloride 0.9%) 1,000 mls @ 70 mls/hr IV .[id number] [facility] Last Admin: 06/12/17 09:58 Dose: Not Given Levothyroxine Sodium (Synthroid) 88 mcg PO 0630 [facility] Last Admin: 06/12/17 09:59 Dose: 88 mcg Lisinopril (Zestril) 10 mg PO DAILY [facility] Last Admin: 06/12/17 09:58 Dose: 10 mg Morphine Sulfate (Morphine) 2 mg IVP Q4 PRN PRN Reason: Pain, moderate (4-7) Last Admin: 06/12/17 04:00 Dose: 2 mg Multivitamins/Minerals (Therapeutic-M Tab) 1 tab PO DAILY [facility] Last Admin: 06/12/17 09:58 Dose: 1 tab Ondansetron HCl (Zofran Inj) 4 mg IVP Q4 PRN PRN Reason: Nausea/Vomiting Oxycodone HCl (Oxycodone Immediate Release Tab) 15 mg PO Q8H PRN PRN Reason: Pain, severe (8-10) Last Admin: 06/12/17 14:30 Dose: 15 mg Pantoprazole Sodium (Protonix Ec Tab) 40 mg PO DAILY [facility] Last Admin: 06/12/17 09:58 Dose: 40 mg Polyethylene Glycol (Miralax) 17 gm PO DAILY [facility] Last Admin: 06/12/17 15:12 Dose: 17 gm Prednisone (Prednisone Tab) 5 mg PO DAILY [facility] Last Admin: 06/12/17 09:58 Dose: 5 mg Pregabalin (Lyrica) 100 mg PO Q8@0600,1400,2200 [facility] Last Admin: 06/12/17 14:31 Dose: 100 mg - Labs Labs: 06/12/17 10:30 06/12/17 10:30 PT 14.3 Seconds (9.8-13.1) H 06/12/17 10:30 INR 1.4 (0.9-1.2) H 06/12/17 10:30 - Constitutional Appears: Non-toxic - Head Exam Head Exam: ATRAUMATIC, NORMAL INSPECTION, NORMOCEPHALIC - Eye Exam Eye Exam: EOMI, Normal appearance, PERRL Pupil Exam: NORMAL ACCOMODATION, PERRL - ENT Exam ENT Exam: Mucous Membranes Moist, Normal Exam - Neck Exam Neck Exam: Full ROM, Normal Inspection. absent: Lymphadenopathy - Respiratory Exam Respiratory Exam: Clear to Ausculation Bilateral, NORMAL BREATHING PATTERN - Cardiovascular Exam Cardiovascular Exam: REGULAR RHYTHM, +S1, +S2. absent: Murmur - GI/Abdominal Exam GI & Abdominal Exam: Soft, Tenderness, Normal Bowel Sounds. absent: Distended, Firm, Guarding, Rigid Additional comments: Epigastris/RUQ TTP. - Exam Exam: NORMAL INSPECTION - Extremities Exam Extremities Exam: Full ROM, Normal Capillary Refill, Normal Inspection. 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 the ITP and pre-op optimization -Will plan for cholecystectomy once pt. is medically optimized for surgery DW Dr. Lester <Benji Lester - Last Filed: 06/12/17 21:09> Objective - Vital Signs/Intake and Output Vital Signs (last 24 hours): Temp Pulse Resp BP Pulse Ox 98.1 F 79 20 119/78 99 06/12/17 16:23 06/12/17 16:23 06/12/17 16:23 06/12/17 16:23 06/12/17 16:29 - Medications Medications: Current Medications Clonazepam (Klonopin) 1 mg PO TID PRN PRN Reason: Anxiety Duloxetine HCl (Cymbalta) 30 mg PO HS [facility] Last Admin: 06/11/17 22:39 Dose: 30 mg Ergocalciferol (Drisdol 50,000 Intl Units Cap) 1 cap PO MON [facility] Escitalopram Oxalate (Lexapro) 10 mg PO DAILY [facility] Last Admin: 06/12/17 09:58 Dose: 10 mg Home Med (Calcium Carbonate [Caltrate]) 1 tab PO DAILY [facility] Home Med (Methylnaltrexone [place] [Relistor]) 450 mg PO DAILY PRN PRN Reason: Constipation Hydroxychloroquine Sulfate (Plaquenil) 200 mg PO BID [facility] Last Admin: 06/12/17 17:12 Dose: 200 mg Piperacillin Sod/Tazobactam (Sod 3.375 gm/ Sodium Chloride) 100 mls @ 100 mls/ hr IVPB Q6 [facility] Last Admin: 06/12/17 17:12 Dose: 100 mls/hr Sodium Chloride (Sodium Chloride 0.9%) 1,000 mls @ 70 mls/hr IV .[id number] [facility] Last Admin: 06/12/17 09:58 Dose: Not Given Levothyroxine Sodium (Synthroid) 88 mcg PO 0630 [facility] Last Admin: 06/12/17 09:59 Dose: 88 mcg Lisinopril (Zestril) 10 mg PO DAILY [facility] Last Admin: 06/12/17 09:58 Dose: 10 mg Morphine Sulfate (Morphine) 2 mg IVP Q4 PRN PRN Reason: Pain, moderate (4-7) Last Admin: 06/12/17 04:00 Dose: 2 mg Multivitamins/Minerals (Therapeutic-M Tab) 1 tab PO DAILY [facility] Last Admin: 06/12/17 09:58 Dose: 1 tab Ondansetron HCl (Zofran Inj) 4 mg IVP Q4 PRN PRN Reason: Nausea/Vomiting Oxycodone HCl (Oxycodone Immediate Release Tab) 15 mg PO Q8H PRN PRN Reason: Pain, severe (8-10) Last Admin: 06/12/17 14:30 Dose: 15 mg Pantoprazole Sodium (Protonix Ec Tab) 40 mg PO DAILY [facility] Last Admin: 06/12/17 09:58 Dose: 40 mg Polyethylene Glycol (Miralax) 17 gm PO DAILY [facility] Last Admin: 06/12/17 15:12 Dose: 17 gm Prednisone (Prednisone Tab) 5 mg PO DAILY [facility] Last Admin: 06/12/17 09:58 Dose: 5 mg Pregabalin (Lyrica) 100 mg PO Q8@0600,1400,2200 [facility] Last Admin: 06/12/17 14:31 Dose: 100 mg - Labs Labs: 06/12/17 10:30 06/12/17 10:30 PT 14.3 Seconds (9.8-13.1) H 06/12/17 10:30 INR 1.4 (0.9-1.2) H 06/12/17 10:30 APTT 32.6 Seconds (25.6-37.1) 06/12/17 18:45 Attending/Attestation - Attestation I have personally seen and examined this patient.: Yes I have fully participated in the care of the patient.: Yes I have reviewed all pertinent clinical information, including history, physical exam and plan: Yes Notes (Text): 06/12/17 21:09 Pt was seen and examined at bedside Agree with above note and assessment Pt with Cholelithiasis and CBD stone ERCP Repeat LFTs IV antibiotics Serial Abdominal exam Plan d.w pt in detail Risk and benefit explained in detail.
--- NOTE | 2017-06-12 21:06 | HP ---
CHIEF COMPLAINT: Abdominal pain. HISTORY OF PRESENT ILLNESS: This is a 56-year-old female with multiple medical problems including multiple sclerosis, hypothyroidism, ITP, arthritis, and obesity, who was having abdominal pain for a few days which got worse, so the patient was brought to emergency room and was found to have acute cholecystitis, and was admitted for further management. REVIEW OF SYSTEMS: Positive for abdominal pain and nauseous feeling. Review of systems otherwise is negative for headache, dizziness, syncope, loss of consciousness, chest pain, shortness of breath, diarrhea, constipation, or any new joint or extremity pain. Review of systems also is positive for the patient's chronic medical problem without any acute change in them. Review of system of all other organ system is unremarkable. PAST MEDICAL HISTORY: Significant for hypothyroidism, morbid obesity, multiple sclerosis, ITP. PAST SURGICAL HISTORY: Unremarkable. PERSONAL HISTORY: The patient is currently nonsmoker, nondrinker. No substance abuse. MEDICATIONS: The patient is on multiple medications which are as per reconciliation sheet which was reviewed and ordered. ALLERGIES: The patient is not allergic to any medications. FAMILY HISTORY: Noncontributory. PHYSICAL EXAMINATION: GENERAL: Well-built well-nourished overweight 56-year-old female, in no acute distress. VITAL SIGNS: Temperature afebrile, pulse 99, respirations 17, blood pressure 146/76. HEENT: Pupils are reactive to light. No nystagmus. Normocephalic. Atraumatic scalp. NECK: No JVD. No thyromegaly. No lymphadenopathy. HEART: S1 and S2 normal and regular. No significant murmur, gallop, or rub is heard. LUNGS: Exam shows good bilateral air exchange. No rales or rhonchi. ABDOMEN: The patient has right upper quadrant tenderness. Positive sign of acute cholecystitis. No sign of acute abdomen. No guarding. No rigidity. No rebound. Bowel sounds are plus. EXTREMITIES: No edema. No calf swelling. No tenderness. No acute ischemia. HAMMER ADJUSTER: Essentially unchanged from the patient's initial exam and there is no sign of any acute gross focal motor, sensory, or neurological deficit. DIAGNOSTIC DATA: Available diagnostic data reviewed. CAT scan of the abdomen and ultrasound are consistent with acute cholecystitis. WBC count is 15. ADMITTING IMPRESSION: Acute cholecystitis, hypothyroidism, multiple sclerosis, idiopathic thrombocytopenic purpura, obesity. PLAN: As ordered. Case and plan discussed with the patient. Phillip Liz MD
[2017-06-13] MEDS: oxyCODONE 5 mg Immediate Release Tab PO PRN (00:20)
[2017-06-13] MEDS: Sodium Chloride 0.9% 1,000 ML IV SCH ×2 (00:23→16:24)
[2017-06-13] MEDS: Piperacillin/Tazobact 3.375 GM in Sodium Chloride 0.9% 100 ML IVPB SCH ×4 (04:58→21:24)
[2017-06-13] MEDS: Levothyroxine 88 MCG TAB PO SCH (06:54)
[2017-06-13 08:14] LABS: HEMATOCRIT 34.3 % (34.0-47.0); MEAN CORPUSCULAR HEMOGLOBIN 26.5 pg (27.0-31.0); MEAN CORPUSCULAR HGB CONC 31.9 g/dL (33.0-37.0); RED CELL DISTRIBUTION WIDTH 14.1 % (11.5-14.5); WHITE BLOOD COUNT 6.4 K/uL (4.8-10.8)
[2017-06-13 08:37] LABS: ALB/GLOB RATIO 1.1 (1.0-2.1); ALKALINE PHOSPHATASE 136 U/L (38-126); ALT/SGPT 140 U/L (9-52); AST/SGOT 107 U/L (14-36); BILIRUBIN,TOTAL 0.7 mg/dl (0.2-1.3); BLOOD UREA NITROGEN 6 mg/dl (7-17); CALCIUM 7.6 mg/dL (8.4-10.2); CARBON DIOXIDE 22 mmol/L (22-30); CHLORIDE 110 mmol/L (98-107); GFR AFRICAN-AMERICAN > 60; GLUCOSE,RANDOM 88 mg/dL (65-105); LIPASE 28 U/L (23-300); POTASSIUM 3.7 MMOL/L (3.6-5.0); SODIUM 138 mmol/l (132-148); TOTAL PROTEIN 6.1 G/DL (6.3-8.2)
--- NOTE | 2017-06-13 09:31 | CP.PCM.PN ---
<Sammy Ortiz - Last Filed: 06/13/17 09:29> Subjective - Date & Time of Evaluation Date of Evaluation: 06/13/17 Time of Evaluation: 09:29 - Subjective Subjective: Surgery Pt s&e. NAEON. Denies F/C/N/V/D/CP/SOB. Tolerating diet. Pain controlled. + amb , + void Objective - Vital Signs/Intake and Output Vital Signs (last 24 hours): Temp Pulse Resp BP Pulse Ox 97.9 F 68 17 115/77 98 06/13/17 07:35 06/13/17 07:35 06/13/17 07:35 06/13/17 07:35 06/13/17 07:35 - Medications Medications: Current Medications Clonazepam (Klonopin) 1 mg PO TID PRN PRN Reason: Anxiety Duloxetine HCl (Cymbalta) 30 mg PO HS [facility] Last Admin: 06/12/17 21:35 Dose: 30 mg Ergocalciferol (Drisdol 50,000 Intl Units Cap) 1 cap PO MON [facility] Escitalopram Oxalate (Lexapro) 10 mg PO DAILY [facility] Last Admin: 06/12/17 09:58 Dose: 10 mg Home Med (Calcium Carbonate [Caltrate]) 1 tab PO DAILY [facility] Home Med (Methylnaltrexone [place] [Relistor]) 450 mg PO DAILY PRN PRN Reason: Constipation Hydroxychloroquine Sulfate (Plaquenil) 200 mg PO BID [facility] Last Admin: 06/12/17 17:12 Dose: 200 mg Piperacillin Sod/Tazobactam (Sod 3.375 gm/ Sodium Chloride) 100 mls @ 100 mls/ hr IVPB Q6 [facility] Last Admin: 06/13/17 04:58 Dose: 100 mls/hr Sodium Chloride (Sodium Chloride 0.9%) 1,000 mls @ 70 mls/hr IV .[id number] [facility] Last Admin: 06/13/17 00:23 Dose: 70 mls/hr Levothyroxine Sodium (Synthroid) 88 mcg PO DAILY@0630 [facility] Last Admin: 06/13/17 06:54 Dose: 88 mcg Lisinopril (Zestril) 10 mg PO DAILY [facility] Last Admin: 06/12/17 09:58 Dose: 10 mg Morphine Sulfate (Morphine) 2 mg IVP Q4 PRN PRN Reason: Pain, moderate (4-7) Last Admin: 06/12/17 04:00 Dose: 2 mg Multivitamins/Minerals (Therapeutic-M Tab) 1 tab PO DAILY [facility] Last Admin: 06/12/17 09:58 Dose: 1 tab Ondansetron HCl (Zofran Inj) 4 mg IVP Q4 PRN PRN Reason: Nausea/Vomiting Oxycodone HCl (Oxycodone Immediate Release Tab) 15 mg PO Q8H PRN PRN Reason: Pain, severe (8-10) Last Admin: 06/13/17 00:20 Dose: 15 mg Pantoprazole Sodium (Protonix Ec Tab) 40 mg PO DAILY [facility] Last Admin: 06/12/17 09:58 Dose: 40 mg Polyethylene Glycol (Miralax) 17 gm PO DAILY [facility] Last Admin: 06/12/17 15:12 Dose: 17 gm Prednisone (Prednisone Tab) 5 mg PO DAILY [facility] Last Admin: 06/12/17 09:58 Dose: 5 mg Pregabalin (Lyrica) 100 mg PO Q8@0600,1400,2200 [facility] Last Admin: 06/13/17 06:54 Dose: 100 mg - Labs Labs: 06/13/17 06:00 06/13/17 06:00 PT 13.3 Seconds (9.8-13.1) H 06/13/17 06:00 INR 1.3 (0.9-1.2) H 06/13/17 06:00 APTT 32.6 Seconds (25.6-37.1) 06/12/17 18:45 - Constitutional Appears: No Acute Distress - Head Exam Head Exam: ATRAUMATIC, NORMAL INSPECTION, NORMOCEPHALIC - Eye Exam Eye Exam: EOMI, Normal appearance, PERRL Pupil Exam: NORMAL ACCOMODATION, PERRL - ENT Exam ENT Exam: Mucous Membranes Moist, Normal Exam - Neck Exam Neck Exam: Full ROM, Normal Inspection. absent: Lymphadenopathy - Respiratory Exam Respiratory Exam: Clear to Ausculation Bilateral, NORMAL BREATHING PATTERN - Cardiovascular Exam Cardiovascular Exam: REGULAR RHYTHM, +S1, +S2. absent: Murmur - GI/Abdominal Exam GI & Abdominal Exam: Soft, Normal Bowel Sounds. absent: Tenderness - Rectal Exam Rectal Exam: NORMAL INSPECTION - Exam Exam: NORMAL INSPECTION - Extremities Exam Extremities Exam: Full ROM, Normal Capillary Refill, Normal Inspection. 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 the ITP and pre-op optimization -Will plan for cholecystectomy once pt. is medically optimized for surgery DW Dr. Lester <Benji Lester - Last Filed: 06/13/17 14:10> Objective - Vital Signs/Intake and Output Vital Signs (last 24 hours): Temp Pulse Resp BP Pulse Ox 97.9 F 68 17 115/77 98 06/13/17 07:35 06/13/17 07:35 06/13/17 07:35 06/13/17 10:14 06/13/17 07:35 - Medications Medications: Current Medications Clonazepam (Klonopin) 1 mg PO TID PRN PRN Reason: Anxiety Duloxetine HCl (Cymbalta) 30 mg PO HS [facility] Last Admin: 06/12/17 21:35 Dose: 30 mg Ergocalciferol (Drisdol 50,000 Intl Units Cap) 1 cap PO MON [facility] Escitalopram Oxalate (Lexapro) 10 mg PO DAILY [facility] Last Admin: 06/13/17 10:09 Dose: 10 mg Home Med (Calcium Carbonate [Caltrate]) 1 tab PO DAILY [facility] Home Med (Methylnaltrexone [place] [Relistor]) 450 mg PO DAILY PRN PRN Reason: Constipation Hydroxychloroquine Sulfate (Plaquenil) 200 mg PO BID [facility] Last Admin: 06/13/17 10:09 Dose: 200 mg Piperacillin Sod/Tazobactam (Sod 3.375 gm/ Sodium Chloride) 100 mls @ 100 mls/ hr IVPB Q6 [facility] Last Admin: 06/13/17 10:11 Dose: 100 mls/hr Sodium Chloride (Sodium Chloride 0.9%) 1,000 mls @ 70 mls/hr IV .[id number] [facility] Last Admin: 06/13/17 00:23 Dose: 70 mls/hr Levothyroxine Sodium (Synthroid) 88 mcg PO DAILY@0630 [facility] Last Admin: 06/13/17 06:54 Dose: 88 mcg Lisinopril (Zestril) 10 mg PO DAILY [facility] Last Admin: 06/13/17 10:14 Dose: 10 mg Morphine Sulfate (Morphine) 2 mg IVP Q4 PRN PRN Reason: Pain, moderate (4-7) Last Admin: 06/12/17 04:00 Dose: 2 mg Multivitamins/Minerals (Therapeutic-M Tab) 1 tab PO DAILY [facility] Last Admin: 06/13/17 10:09 Dose: 1 tab Ondansetron HCl (Zofran Inj) 4 mg IVP Q4 PRN PRN Reason: Nausea/Vomiting Oxycodone HCl (Oxycodone Immediate Release Tab) 15 mg PO Q8H PRN PRN Reason: Pain, severe (8-10) Last Admin: 06/13/17 00:20 Dose: 15 mg Pantoprazole Sodium (Protonix Ec Tab) 40 mg PO DAILY [facility] Last Admin: 06/13/17 10:09 Dose: 40 mg Polyethylene Glycol (Miralax) 17 gm PO DAILY [facility] Last Admin: 06/13/17 10:09 Dose: 17 gm Prednisone (Prednisone Tab) 5 mg PO DAILY [facility] Last Admin: 06/13/17 10:10 Dose: 5 mg Pregabalin (Lyrica) 100 mg PO Q8@0600,1400,2200 [facility] Last Admin: 06/13/17 14:02 Dose: 100 mg - Labs Labs: 06/13/17 06:00 06/13/17 06:00 PT 13.3 Seconds (9.8-13.1) H 06/13/17 06:00 INR 1.3 (0.9-1.2) H 06/13/17 06:00 APTT 32.6 Seconds (25.6-37.1) 06/12/17 18:45 Attending/Attestation - Attestation I have personally seen and examined this patient.: Yes I have fully participated in the care of the patient.: Yes I have reviewed all pertinent clinical information, including history, physical exam and plan: Yes Notes (Text): 06/13/17 14:08 Pt was seen and examined at bedside Agree with above note and assessment Pt with Cholelithiasis and Choledocholithiasis ERCP tomorrow Repeat LFTs and Lipase NPO, IVF IV antibiotics Plan d/w pt in detail Risk and benefit explained in detail.
[2017-06-13] MEDS: POLYETHYLENE GLYCOL 3350 17 GM/Dose PACKET PO SCH (10:09)
[2017-06-13] MEDS: Pantoprazole 40 mg EC Tab PO SCH (10:09)
[2017-06-13] MEDS: Multivitamin With Minerals Tab PO SCH (10:09)
--- NOTE | 2017-06-13 11:43 | PN ---
DATE: 06/13/2017 SUBJECTIVE: The patient was seen and examined. Interim events noted. Consults noted and appreciated. Gastroenterology and surgical followup and intervention noted and appreciated. The patient remains in regular medical floor. The patient feels okay. Abdominal pain resolved. No chest pain. No shortness of breath. PHYSICAL EXAMINATION: GENERAL: The patient is in no acute distress. VITAL SIGNS: Stable. HEART: S1 and S2 normal and regular. LUNGS: Show good bilateral air exchange. ABDOMEN: The patient still has right upper quadrant tenderness, although it is better and only present on deep palpation. No sign of acute abdomen. No guarding. No rigidity. No rebound. Bowel sounds are present and normal. EXTREMITIES: No edema. No calf swelling. No tenderness. No acute ischemia. CENTRAL NERVOUS SYSTEM: Essentially unchanged. DIAGNOSTIC DATA: Available diagnostic data reviewed. IMPRESSION: Overall, the patient's general medical condition is slowly improved. Platelet count still remains low. PLAN: As ordered. Case and plan was discussed with the patient. Phillip Liz MD
--- NOTE | 2017-06-13 12:20 | CP.PCM.PN ---
Subjective - Date & Time of Evaluation Date of Evaluation: 06/13/17 Time of Evaluation: 12:00 - Subjective Subjective: patient seen at bedside. Ambulating. Pain is better. Denies nausea, vomiting and fever, chills. Tolerating clear liquid diet Objective - Vital Signs/Intake and Output Vital Signs (last 24 hours): Temp Pulse Resp BP Pulse Ox 97.9 F 68 17 115/77 98 06/13/17 07:35 06/13/17 07:35 06/13/17 07:35 06/13/17 10:14 06/13/17 07:35 - Medications Medications: Current Medications Clonazepam (Klonopin) 1 mg PO TID PRN PRN Reason: Anxiety Duloxetine HCl (Cymbalta) 30 mg PO HS [facility] Last Admin: 06/12/17 21:35 Dose: 30 mg Ergocalciferol (Drisdol 50,000 Intl Units Cap) 1 cap PO MON [facility] Escitalopram Oxalate (Lexapro) 10 mg PO DAILY [facility] Last Admin: 06/13/17 10:09 Dose: 10 mg Home Med (Calcium Carbonate [Caltrate]) 1 tab PO DAILY [facility] Home Med (Methylnaltrexone [place] [Relistor]) 450 mg PO DAILY PRN PRN Reason: Constipation Hydroxychloroquine Sulfate (Plaquenil) 200 mg PO BID [facility] Last Admin: 06/13/17 10:09 Dose: 200 mg Piperacillin Sod/Tazobactam (Sod 3.375 gm/ Sodium Chloride) 100 mls @ 100 mls/ hr IVPB Q6 [facility] Last Admin: 06/13/17 10:11 Dose: 100 mls/hr Sodium Chloride (Sodium Chloride 0.9%) 1,000 mls @ 70 mls/hr IV .[id number] [facility] Last Admin: 06/13/17 00:23 Dose: 70 mls/hr Levothyroxine Sodium (Synthroid) 88 mcg PO DAILY@0630 [facility] Last Admin: 06/13/17 06:54 Dose: 88 mcg Lisinopril (Zestril) 10 mg PO DAILY [facility] Last Admin: 06/13/17 10:14 Dose: 10 mg Morphine Sulfate (Morphine) 2 mg IVP Q4 PRN PRN Reason: Pain, moderate (4-7) Last Admin: 06/12/17 04:00 Dose: 2 mg Multivitamins/Minerals (Therapeutic-M Tab) 1 tab PO DAILY [facility] Last Admin: 06/13/17 10:09 Dose: 1 tab Ondansetron HCl (Zofran Inj) 4 mg IVP Q4 PRN PRN Reason: Nausea/Vomiting Oxycodone HCl (Oxycodone Immediate Release Tab) 15 mg PO Q8H PRN PRN Reason: Pain, severe (8-10) Last Admin: 06/13/17 00:20 Dose: 15 mg Pantoprazole Sodium (Protonix Ec Tab) 40 mg PO DAILY [facility] Last Admin: 06/13/17 10:09 Dose: 40 mg Polyethylene Glycol (Miralax) 17 gm PO DAILY [facility] Last Admin: 06/13/17 10:09 Dose: 17 gm Prednisone (Prednisone Tab) 5 mg PO DAILY [facility] Last Admin: 06/13/17 10:10 Dose: 5 mg Pregabalin (Lyrica) 100 mg PO Q8@0600,1400,2200 [facility] Last Admin: 06/13/17 06:54 Dose: 100 mg - Labs Labs: 06/13/17 06:00 06/13/17 06:00 PT 13.3 Seconds (9.8-13.1) H 06/13/17 06:00 INR 1.3 (0.9-1.2) H 06/13/17 06:00 APTT 32.6 Seconds (25.6-37.1) 06/12/17 18:45 - Constitutional Appears: Well, Non-toxic, No Acute Distress - Head Exam Head Exam: ATRAUMATIC, NORMAL INSPECTION, NORMOCEPHALIC - Eye Exam Eye Exam: Normal appearance, PERRL - ENT Exam ENT Exam: Mucous Membranes Moist, Normal Exam - Neck Exam Neck Exam: Full ROM, Normal Inspection. absent: Lymphadenopathy - Respiratory Exam Respiratory Exam: Clear to Ausculation Bilateral, NORMAL BREATHING PATTERN - Cardiovascular Exam Cardiovascular Exam: REGULAR RHYTHM, +S1, +S2. absent: Murmur - GI/Abdominal Exam GI & Abdominal Exam: Distended, Soft, Normal Bowel Sounds. absent: Tenderness - Extremities Exam Extremities Exam: Full ROM, Normal Capillary Refill, Normal Inspection. absent : Joint Swelling, Pedal Edema - Neurological Exam Neurological Exam: Alert, Awake, CN II-XII Intact, Normal Gait, Oriented x3 - Psychiatric Exam Psychiatric exam: Normal Affect, Normal Mood Assessment and Plan - Assessment and Plan (Free Text) Assessment: 56 year old female with history of Hypertension, Multiple sclerosis, Hypothyroidism, Lupus on Plaquenil, and ITP on Prednisone presenting with abdominal pain with cholecystitis and choledocholithiasis. Prior EGD 09/2016 showed margie esophagitis s/p Diflucan course. Plan: - MRCP reviewed by me- sludge/calculi in CBD - Discussed with dr Montesinos radiologist for official - continue Zosyn - clear liquid diet as tolerated - NPO past midnight - EUS/ERCP Wednesday at [facility] - will require cholecystectomy after ERCP - low platelets, held one pool of platelets to transfuse wednesday morning - Transfer patient Wednesday to [facility]- transport to be called at 10.00 am - Discussed with nursing
--- NOTE | 2017-06-13 13:56 | MRI ---
MRCP Indication: Elevated LFTs, choledocholithiasis on ultrasound Technique: Multiplanar, multisequence MR images of the abdomen were obtained, including heavily T2 weighted MRCP images of the biliary system. Rotating maximum intensity projection images of the biliary system were generated. A total of 474 images were submitted for review. Comparison: Limited abdominal ultrasound performed 06/11/17, CT of the abdomen pelvis without oral or IV contrast performed 06/11/17 Findings: Hepatic steatosis. Mildly distended gallbladder. Cholelithiasis. Mild probable gallbladder wall thickening and evidence of pericholecystic edema extending to the ej hepatis. Distal-most CBD is not well visualized and there is a questionable meniscus near the ampulla ; distal CBD calculus is not excluded. The common bile duct is not dilated. There is no intrahepatic biliary ductal dilatation. The pancreatic duct appears within normal limits of caliber. No filling defects are seen in the common pancreatic duct. The included portions of noncontrast adrenal glands, kidneys, spleen, and pancreas appear unremarkable. No bulky abdominal lymphadenopathy is seen. No ascites. Subcutaneous edema, lower back. No acute osseous abnormality is detected. Impression: Cholelithiasis. Evidence of gallbladder wall thickening/pericholecystic edema. Correlate clinically for cholecystitis. Questionable distal CBD calculus. The common bile duct does not appear dilated. Additional findings as above. Preliminary impression was provided by virtual radi[employer].
--- NOTE | 2017-06-13 14:15 | CP.PCM.CON ---
History of Present Illness - History of Present Illness History of Present Illness: Hematology Consult Referred by Dr. 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 Imaging showed gall bladder stones with cholecycstitis. She is scheduled for ERCP/EUS tomorrow and eventually cholecystectomy once stable. She has h/o Lupus and is currently being managed by Dr. Connelly and is on Prednisone 5 mg daily. Her platelet count was 63 on admission and is 46 today. She denies any bleeding. She denies any history of platelet transfusion. She is being managed by discotheque dancer in [facility]. Family- denies stomach cancer, colon cancer Social- denies tobacco, alcohol, illicit drug use Surgery- right wrist, C-sectionx2, 09/2016 left L3-5 nerve block and left sacroiliac injection Review of Systems - Constitutional Constitutional: Fatigue. absent: Chills, Fever, Night Sweats - EENT Eyes: absent: Blind Spots, Blurred Vision, Change in Vision Ears: absent: Decreased Hearing, Ear Discharge, Ear Pain Nose/Mouth/Throat: absent: Epistaxis, Nasal Congestion, Nasal Discharge - Cardiovascular Cardiovascular: absent: Chest Pain, Dyspnea, Leg Edema - Respiratory Respiratory: absent: Cough, Dyspnea, Hemoptysis - Gastrointestinal Gastrointestinal: Abdominal Pain. absent: Bloating, Change in Bowel Habits, Constipation - Genitourinary Genitourinary: absent: Change in Urinary Stream, Difficulty Urinating Past Patient History - Infectious Disease Hx of Infectious Diseases: None - Past Medical History & Family History Past Medical History?: Yes - Past Social History Smoking Status: Current Some Days Smoker - CARDIAC Hx Cardiac Disorders: Yes - PULMONARY Hx Asthma: Yes Hx Pneumonia: Yes - NEUROLOGICAL Hx Multiple Sclerosis: Yes - HEENT Hx HEENT Problems: Yes - RENAL Hx Chronic Kidney Disease: No - ENDOCRINE/METABOLIC Hx Hypothyroidism: Yes - HEMATOLOGICAL/ONCOLOGICAL Hx Anemia: Yes - INTEGUMENTARY Hx Dermatological Problems: No - MUSCULOSKELETAL/RHEUMATOLOGICAL Hx Musculoskeletal Disorders: Yes Hx Back Pain: Yes Hx Falls: Yes Other/Comment: MS - GASTROINTESTINAL Hx Gastrointestinal Disorders: No Hx Gastroesophageal Reflux: Yes - GENITOURINARY/GYNECOLOGICAL Hx Genitourinary Disorders: No - PSYCHIATRIC Hx Anxiety: Yes Hx Depression: Yes Hx Substance Use: No - SURGICAL HISTORY Hx Surgeries: Yes Hx Section: Yes Hx Tubal Ligation: Yes Other/Comment: EPIDURAL - ANESTHESIA Hx Anesthesia: Yes Hx Anesthesia Reactions: No Hx Malignant Hyperthermia: No Meds Allergies/Adverse Reactions: Allergies Allergy/AdvReac Type Severity Reaction Status Date / Time No Known Allergies Allergy Verified 04/03/17 19:06 - Medications Medications: Current Medications Clonazepam (Klonopin) 1 mg PO TID PRN PRN Reason: Anxiety Duloxetine HCl (Cymbalta) 30 mg PO HS [facility] Last Admin: 06/12/17 21:35 Dose: 30 mg Ergocalciferol (Drisdol 50,000 Intl Units Cap) 1 cap PO MON [facility] Escitalopram Oxalate (Lexapro) 10 mg PO DAILY [facility] Last Admin: 06/13/17 10:09 Dose: 10 mg Home Med (Calcium Carbonate [Caltrate]) 1 tab PO DAILY [facility] Home Med (Methylnaltrexone [place] [Relistor]) 450 mg PO DAILY PRN PRN Reason: Constipation Hydroxychloroquine Sulfate (Plaquenil) 200 mg PO BID [facility] Last Admin: 06/13/17 10:09 Dose: 200 mg Piperacillin Sod/Tazobactam (Sod 3.375 gm/ Sodium Chloride) 100 mls @ 100 mls/ hr IVPB Q6 [facility] Last Admin: 06/13/17 10:11 Dose: 100 mls/hr Sodium Chloride (Sodium Chloride 0.9%) 1,000 mls @ 70 mls/hr IV .[id number] [facility] Last Admin: 06/13/17 00:23 Dose: 70 mls/hr Levothyroxine Sodium (Synthroid) 88 mcg PO DAILY@0630 [facility] Last Admin: 06/13/17 06:54 Dose: 88 mcg Lisinopril (Zestril) 10 mg PO DAILY [facility] Last Admin: 06/13/17 10:14 Dose: 10 mg Morphine Sulfate (Morphine) 2 mg IVP Q4 PRN PRN Reason: Pain, moderate (4-7) Last Admin: 06/12/17 04:00 Dose: 2 mg Multivitamins/Minerals (Therapeutic-M Tab) 1 tab PO DAILY [facility] Last Admin: 06/13/17 10:09 Dose: 1 tab Ondansetron HCl (Zofran Inj) 4 mg IVP Q4 PRN PRN Reason: Nausea/Vomiting Oxycodone HCl (Oxycodone Immediate Release Tab) 15 mg PO Q8H PRN PRN Reason: Pain, severe (8-10) Last Admin: 06/13/17 00:20 Dose: 15 mg Pantoprazole Sodium (Protonix Ec Tab) 40 mg PO DAILY [facility] Last Admin: 06/13/17 10:09 Dose: 40 mg Polyethylene Glycol (Miralax) 17 gm PO DAILY [facility] Last Admin: 06/13/17 10:09 Dose: 17 gm Prednisone (Prednisone Tab) 5 mg PO DAILY [facility] Last Admin: 06/13/17 10:10 Dose: 5 mg Pregabalin (Lyrica) 100 mg PO Q8@0600,1400,2200 [facility] Last Admin: 06/13/17 14:02 Dose: 100 mg Physical Exam - Head Exam Head Exam: ATRAUMATIC, NORMAL INSPECTION - Eye Exam Eye Exam: EOMI, PERRL. absent: Scleral icterus - ENT Exam ENT Exam: Mucous Membranes Moist - Neck Exam Neck exam: Negative for: Lymphadenopathy - Respiratory Exam Respiratory Exam: Clear to Auscultation Bilateral - Cardiovascular Exam Cardiovascular Exam: REGULAR RHYTHM - GI/Abdominal Exam GI & Abdominal Exam: Normal Bowel Sounds, Soft. absent: Organomegaly, Tenderness - Extremities Exam Extremities exam: Negative for: pedal edema - Neurological Exam Neurological exam: Alert, Oriented x3 Results - Vital Signs Recent Vital Signs: Last Vital Signs Temp 97.9 F 06/13/17 07:35 Pulse 68 06/13/17 07:35 Resp 17 06/13/17 07:35 BP 115/77 06/13/17 10:14 Pulse Ox 98 06/13/17 07:35 - Labs Result Diagrams: 06/13/17 06:00 06/13/17 06:00 Labs: Laboratory Results - last 24 hr 06/12/17 06/13/17 06/13/17 18:45 06:00 06:00 WBC 6.4 RBC 4.13 Hgb 10.9 L Hct 34.3 MCV 83.0 MCH 26.5 L MCHC 31.9 L RDW 14.1 Plt Count 46 L PT INR APTT 32.6 Sodium 138 Potassium 3.7 Chloride 110 H Carbon Dioxide 22 Anion Gap 10 BUN 6 L Creatinine 0.8 Est GFR ( Amer) > 60 Est GFR (Non-Af Amer) > 60 Random Glucose 88 Calcium 7.6 L Total Bilirubin 0.7 AST 107 H D ALT 140 H Alkaline Phosphatase 136 H Total Protein 6.1 L Albumin 3.2 L Globulin 2.9 Albumin/Globulin Ratio 1.1 Lipase 28 BBK History Checked 06/13/17 06/13/17 06:00 13:25 WBC RBC Hgb Hct MCV MCH MCHC RDW Plt Count PT 13.3 H INR 1.3 H APTT Sodium Potassium Chloride Carbon Dioxide Anion Gap BUN Creatinine Est GFR ( Amer) Est GFR (Non-Af Amer) Random Glucose Calcium Total Bilirubin AST ALT Alkaline Phosphatase Total Protein Albumin Globulin Albumin/Globulin Ratio Lipase BBK History Checked No verified bt Assessment & Plan - Assessment and Plan (Free Text) Assessment: h/o ITP and Lupus Her platelet count is 46 today. Continue Prednisone 5 mg daily for now. Will give her one dose of IVIG 1 gm/kg today in anticipation for surgical procedure. Agree with platelet transfusion prior to procedure tomorrow (ERCP/EUS) Check platelet count prior to procedure. May repeat a dose of IVIG tomorrow if needed. She should continue to follow up with Dr. Connelly and her discotheque dancer at discharge. She also has borderline microcytic anemia. Will check iron levels. Can consider IV iron replacement if low. Thank you for the consult Dusty Trujillo MD - Date & Time Date: 06/13/17 Time: 14:15
[2017-06-13 15:05] LABS: IRON 29 ug/dL (37-170)
[2017-06-14] MEDS: Sodium Chloride 0.9% 1,000 ML IV SCH (03:18)
[2017-06-14] MEDS: Piperacillin/Tazobact 3.375 GM in Sodium Chloride 0.9% 100 ML IVPB SCH ×4 (03:29→23:00)
[2017-06-14 07:25] LABS: HEMATOCRIT 34.1 % (34.0-47.0); MEAN CELL VOLUME 82.5 fl (81.0-99.0); MEAN CORPUSCULAR HEMOGLOBIN 26.6 pg (27.0-31.0); MEAN CORPUSCULAR HGB CONC 32.3 g/dL (33.0-37.0); RED CELL DISTRIBUTION WIDTH 14.4 % (11.5-14.5); WHITE BLOOD COUNT 8.5 K/uL (4.8-10.8)
--- NOTE | 2017-06-14 07:32 | CP.PCM.PN ---
<Juanis Clark - Last Filed: 06/14/17 07:27> Subjective - Date & Time of Evaluation Date of Evaluation: 06/14/17 Time of Evaluation: 07:27 - Subjective Subjective: General Surgery - Dr. Lester Pt S&E. MIR. Pt is NPO for procedure today. She still complains of RUQ pain but states it's improved. No N/V, F/C, SOB/CP. Objective - Vital Signs/Intake and Output Vital Signs (last 24 hours): Temp Pulse Resp BP Pulse Ox 97.9 F 63 19 119/78 96 06/14/17 03:15 06/14/17 03:15 06/14/17 03:15 06/14/17 03:15 06/14/17 03:15 - Medications Medications: Current Medications Calcium Carbonate (Oscal) 500 mg PO DAILY [facility] Last Admin: 06/13/17 16:23 Dose: 500 mg Clonazepam (Klonopin) 1 mg PO TID PRN PRN Reason: Anxiety Duloxetine HCl (Cymbalta) 30 mg PO HS [facility] Last Admin: 06/13/17 21:25 Dose: 30 mg Ergocalciferol (Drisdol 50,000 Intl Units Cap) 1 cap PO MON [facility] Escitalopram Oxalate (Lexapro) 10 mg PO DAILY [facility] Last Admin: 06/13/17 10:09 Dose: 10 mg Home Med (Methylnaltrexone [place] [Relistor]) 450 mg PO DAILY PRN PRN Reason: Constipation Hydroxychloroquine Sulfate (Plaquenil) 200 mg PO BID [facility] Last Admin: 06/13/17 16:23 Dose: 200 mg Piperacillin Sod/Tazobactam (Sod 3.375 gm/ Sodium Chloride) 100 mls @ 100 mls/ hr IVPB Q6 [facility] Last Admin: 06/14/17 03:29 Dose: 100 mls/hr Sodium Chloride (Sodium Chloride 0.9%) 1,000 mls @ 70 mls/hr IV .[id number] [facility] Last Admin: 06/14/17 03:18 Dose: 70 mls/hr Levothyroxine Sodium (Synthroid) 88 mcg PO DAILY@0630 [facility] Last Admin: 06/13/17 06:54 Dose: 88 mcg Lisinopril (Zestril) 10 mg PO DAILY [facility] Last Admin: 06/13/17 10:14 Dose: 10 mg Morphine Sulfate (Morphine) 2 mg IVP Q4 PRN PRN Reason: Pain, moderate (4-7) Last Admin: 06/12/17 04:00 Dose: 2 mg Multivitamins/Minerals (Therapeutic-M Tab) 1 tab PO DAILY [facility] Last Admin: 06/13/17 10:09 Dose: 1 tab Ondansetron HCl (Zofran Inj) 4 mg IVP Q4 PRN PRN Reason: Nausea/Vomiting Oxycodone HCl (Oxycodone Immediate Release Tab) 15 mg PO Q8H PRN PRN Reason: Pain, severe (8-10) Last Admin: 06/13/17 00:20 Dose: 15 mg Pantoprazole Sodium (Protonix Ec Tab) 40 mg PO DAILY [facility] Last Admin: 06/13/17 10:09 Dose: 40 mg Polyethylene Glycol (Miralax) 17 gm PO DAILY [facility] Last Admin: 06/13/17 10:09 Dose: 17 gm Prednisone (Prednisone Tab) 5 mg PO DAILY [facility] Last Admin: 06/13/17 10:10 Dose: 5 mg Pregabalin (Lyrica) 100 mg PO Q8@0600,1400,2200 [facility] Last Admin: 06/13/17 21:25 Dose: 100 mg - Labs Labs: 06/13/17 06:00 06/13/17 06:00 PT 13.3 Seconds (9.8-13.1) H 06/13/17 06:00 INR 1.3 (0.9-1.2) H 06/13/17 06:00 APTT 32.6 Seconds (25.6-37.1) 06/12/17 18:45 - Constitutional Appears: Well, No Acute Distress - Head Exam Head Exam: ATRAUMATIC, NORMAL INSPECTION, NORMOCEPHALIC - Eye Exam Eye Exam: Normal appearance - Respiratory Exam Respiratory Exam: NORMAL BREATHING PATTERN. absent: Respiratory Distress - GI/Abdominal Exam GI & Abdominal Exam: Guarding, Soft, Tenderness (RUQ and mild ttp LUQ). absent : Distended, Firm, Rigid, Rebound - Neurological Exam Neurological Exam: Alert, Oriented x3 - Psychiatric Exam Psychiatric exam: Normal Affect, Normal Mood - Skin Skin Exam: Dry, Intact Assessment and Plan - Assessment and Plan (Free Text) Assessment: 56F w/ hx of Lupus, MS, HTN, Hypothyroid, ITP, here w/ cholecystitis and choledocholithiasis -NPO today for procedure -Transfer to [facility] this AM for ERCP/EUS with Dr. Sylvester -Platelets were transfused this morning for procedure -F/U Hematology for pre-op optimization -Will plan for cholecystectomy after ERCP/EUS DW Dr. Tayler Clark PGY3 <Benji Lester - Last Filed: 06/20/17 18:18> Objective - Vital Signs/Intake and Output Vital Signs (last 24 hours): Temp Pulse Resp BP Pulse Ox 98.2 F 66 19 114/79 96 06/17/17 13:00 06/17/17 13:00 06/17/17 13:00 06/17/17 13:00 06/17/17 13:00 - Labs Labs: 06/17/17 04:50 06/17/17 04:50 PT 13.3 Seconds (9.8-13.1) H 06/13/17 06:00 INR 1.3 (0.9-1.2) H 06/13/17 06:00 APTT 32.6 Seconds (25.6-37.1) 06/12/17 18:45 Attending/Attestation - Attestation I have personally seen and examined this patient.: Yes I have fully participated in the care of the patient.: Yes I have reviewed all pertinent clinical information, including history, physical exam and plan: Yes Notes (Text): 06/20/17 18:18 Pt was seen and examined at bedside Agree with above note and assessment Pt with CBD stone on MRCP ERCP today Plan d.w pt in detail Risk and benefit explained in detail.
[2017-06-14] MEDS: Levothyroxine 88 MCG TAB PO SCH (07:34)
[2017-06-14 07:43] LABS: ALB/GLOB RATIO 1.2 (1.0-2.1); ALKALINE PHOSPHATASE 134 U/L (38-126); ALT/SGPT 113 U/L (9-52); AST/SGOT 54 U/L (14-36); BILIRUBIN,TOTAL 0.6 mg/dl (0.2-1.3); CALCIUM 8.2 mg/dL (8.4-10.2); CARBON DIOXIDE 25 mmol/L (22-30); CHLORIDE 111 mmol/L (98-107); GFR AFRICAN-AMERICAN > 60; GLUCOSE,RANDOM 86 mg/dL (65-105); SODIUM 144 mmol/l (132-148); TOTAL PROTEIN 6.7 G/DL (6.3-8.2)
[2017-06-14 07:46] LABS: POTASSIUM 3.6 MMOL/L (3.6-5.0)
[2017-06-14 07:54] LABS: BLOOD UREA NITROGEN 2 mg/dl (7-17)
[2017-06-14] MEDS ORDERED: Ergocalciferol 50,000 Intl Units Cap PO SCH (09:00)
--- NOTE | 2017-06-14 09:29 | PN ---
DATE: 06/12/2017 SUBJECTIVE: The patient was seen and examined. Interim events noted. Consults noted and appreciated. Surgical followup and intervention noted and appreciated. The patient remains in regular medical floor, tolerating current . Pain is adequately controlled. No chest pain. No shortness of breath. . PHYSICAL EXAMINATION GENERAL: The patient is in no acute distress. VITAL SIGNS: Stable. HEART: S1 and S2 normal and regular. LUNGS: Good bilateral air exchange. ABDOMEN: Soft and nontender. EXTREMITIES: The patient has DVT. No calf swelling at this time. No tenderness. No acute ischemia. CENTRAL NERVOUS SYSTEM: Essentially unchanged. DIAGNOSTIC DATA: Available diagnostic data reviewed. ASSESSMENT: Overall, the patient's general medical condition is stable and improving. Surgical site is clean. The patient is passing stool in the colostomy bag. PLAN: As ordered. Phillip Liz MD
[2017-06-14] MEDS: Multivitamin With Minerals Tab PO SCH (10:26)
[2017-06-14] MEDS: Pantoprazole 40 mg EC Tab PO SCH (10:26)
[2017-06-14] MEDS: POLYETHYLENE GLYCOL 3350 17 GM/Dose PACKET PO SCH (10:27)
--- NOTE | 2017-06-14 13:47 | PN ---
DATE: 06/14/2017 SUBJECTIVE: The patient was seen and examined. Interim events noted. Consults noted and appreciated. Gastroenterology, Hematology, surgery followup and intervention noted and appreciated. The patient has endoscopy and EUS today, The patient feels okay. Abdominal pain is slightly better. No chest pain. No shortness of breath. PHYSICAL EXAMINATION: GENERAL: The patient is in no acute distress. VITAL SIGNS: Stable. HEART: S1 and S2. normal and regular. LUNGS: Good bilateral air entry. ABDOMEN: Abdominal tenderness is almost resolved. No sign of acute abdomen. No guarding. No rigidity. No rebound. EXTREMITIES: No edema. No calf swelling. No tenderness. No acute ischemia. CENTRAL NERVOUS SYSTEM: Essentially unchanged. DIAGNOSTIC DATA: Available diagnostic data reviewed. IMPRESSION: Overall, the patient's general medical condition is slowly improving. The patient is for further workup and possible cholecystectomy. PLAN: As ordered. Case and plan was discussed with the patient. Phillip Liz MD
[2017-06-14 17:36] LABS: FOLATE > 20.0 ng/mL
[2017-06-14] MEDS: oxyCODONE 5 mg Immediate Release Tab PO PRN (18:55)
[2017-06-15] MEDS: Piperacillin/Tazobact 3.375 GM in Sodium Chloride 0.9% 100 ML IVPB SCH ×3 (05:56→18:20)
[2017-06-15] MEDS: Levothyroxine 88 MCG TAB PO SCH (05:56)
[2017-06-15 07:28] LABS: HEMATOCRIT 35.7 % (34.0-47.0); MEAN CELL VOLUME 81.1 fl (81.0-99.0); MEAN CORPUSCULAR HEMOGLOBIN 26.4 pg (27.0-31.0); MEAN CORPUSCULAR HGB CONC 32.5 g/dL (33.0-37.0); WHITE BLOOD COUNT 8.9 K/uL (4.8-10.8)
[2017-06-15 07:46] LABS: ALB/GLOB RATIO 1.2 (1.0-2.1); ALKALINE PHOSPHATASE 127 U/L (38-126); ALT/SGPT 85 U/L (9-52); AST/SGOT 34 U/L (14-36); BILIRUBIN,TOTAL 0.5 mg/dl (0.2-1.3); BLOOD UREA NITROGEN 4 mg/dl (7-17); CALCIUM 8.3 mg/dL (8.4-10.2); CARBON DIOXIDE 22 mmol/L (22-30); CHLORIDE 110 mmol/L (98-107); GFR AFRICAN-AMERICAN > 60; GLUCOSE,RANDOM 119 mg/dL (65-105); SODIUM 141 mmol/l (132-148); TOTAL PROTEIN 6.9 G/DL (6.3-8.2)
--- NOTE | 2017-06-15 07:50 | CP.PCM.PN ---
<IlanMina - Last Filed: 06/16/17 06:21> Subjective - Date & Time of Evaluation Date of Evaluation: 06/15/17 Time of Evaluation: 07:50 - Subjective Subjective: General Surgery Progress Note for Dr. Lester Patient seen and examined at bedside this AM. No acute event overnight. Patient resting in bed comfortably. She went for ERCP/EUS yesterday at [facility] and tolerated procedure. She states RUQ pain continues to improve. She tolerated diet last night. Denies fever/chills, cp, sob, palpitations, n/v/d. Objective - Vital Signs/Intake and Output Vital Signs (last 24 hours): Temp Pulse Resp BP Pulse Ox 98.4 F 62 19 126/83 99 06/15/17 05:00 06/15/17 05:00 06/15/17 05:00 06/15/17 05:00 06/15/17 05:00 - Medications Medications: Current Medications Calcium Carbonate (Oscal) 500 mg PO DAILY [facility] Last Admin: 06/14/17 10:27 Dose: Not Given Clonazepam (Klonopin) 1 mg PO TID PRN PRN Reason: Anxiety Duloxetine HCl (Cymbalta) 30 mg PO HS [facility] Last Admin: 06/14/17 22:57 Dose: 30 mg Ergocalciferol (Drisdol 50,000 Intl Units Cap) 1 cap PO MON [facility] Last Admin: 06/14/17 10:27 Dose: Not Given Escitalopram Oxalate (Lexapro) 10 mg PO DAILY [facility] Last Admin: 06/14/17 10:27 Dose: Not Given Home Med (Methylnaltrexone [place] [Relistor]) 450 mg PO DAILY PRN PRN Reason: Constipation Hydroxychloroquine Sulfate (Plaquenil) 200 mg PO BID [facility] Last Admin: 06/14/17 18:41 Dose: 200 mg Sodium Chloride (Sodium Chloride 0.9%) 1,000 mls @ 70 mls/hr IV .[id number] [facility] Last Admin: 06/14/17 03:18 Dose: 70 mls/hr Lactated Ringer's (Lactated Ringer's 500ml) 500 mls @ 75 mls/hr IV .[id number] [facility] Piperacillin Sod/Tazobactam (Sod 3.375 gm/ Sodium Chloride) 100 mls @ 100 mls/ hr IVPB 0000,0600,1200,1800 [facility] Last Admin: 06/15/17 05:56 Dose: 100 mls/hr Levothyroxine Sodium (Synthroid) 88 mcg PO DAILY@0630 [facility] Last Admin: 06/15/17 05:56 Dose: 88 mcg Lisinopril (Zestril) 10 mg PO DAILY [facility] Last Admin: 06/14/17 10:26 Dose: Not Given Morphine Sulfate (Morphine) 2 mg IVP Q4 PRN PRN Reason: Pain, moderate (4-7) Last Admin: 06/12/17 04:00 Dose: 2 mg Multivitamins/Minerals (Therapeutic-M Tab) 1 tab PO DAILY [facility] Last Admin: 06/14/17 10:26 Dose: Not Given Ondansetron HCl (Zofran Inj) 4 mg IVP Q4 PRN PRN Reason: Nausea/Vomiting Oxycodone HCl (Oxycodone Immediate Release Tab) 15 mg PO Q8H PRN PRN Reason: Pain, severe (8-10) Last Admin: 06/14/17 18:55 Dose: 15 mg Pantoprazole Sodium (Protonix Ec Tab) 40 mg PO DAILY [facility] Last Admin: 06/14/17 10:26 Dose: Not Given Polyethylene Glycol (Miralax) 17 gm PO DAILY [facility] Last Admin: 06/14/17 10:27 Dose: Not Given Prednisone (Prednisone Tab) 5 mg PO DAILY [facility] Last Admin: 06/14/17 10:26 Dose: Not Given Pregabalin (Lyrica) 100 mg PO Q8@0600,1400,2200 [facility] Last Admin: 06/15/17 05:56 Dose: 100 mg - Labs Labs: 06/15/17 06:50 06/15/17 06:50 PT 13.3 Seconds (9.8-13.1) H 06/13/17 06:00 INR 1.3 (0.9-1.2) H 06/13/17 06:00 APTT 32.6 Seconds (25.6-37.1) 06/12/17 18:45 - Constitutional Appears: No Acute Distress - Head Exam Head Exam: ATRAUMATIC, NORMOCEPHALIC - Eye Exam Eye Exam: Normal appearance - ENT Exam ENT Exam: Mucous Membranes Moist - Neck Exam Neck Exam: Full ROM - Respiratory Exam Respiratory Exam: NORMAL BREATHING PATTERN - Cardiovascular Exam Cardiovascular Exam: REGULAR RHYTHM - GI/Abdominal Exam GI & Abdominal Exam: Soft, Tenderness (minimal in RUQ). absent: Distended, Firm , Guarding, Rigid, Rebound - Extremities Exam Extremities Exam: Full ROM - Back Exam Back Exam: absent: CVA tenderness (L), CVA tenderness (R) - Neurological Exam Neurological Exam: Alert, Awake, Oriented x3 - Psychiatric Exam Psychiatric exam: Normal Affect, Normal Mood - Skin Skin Exam: Dry, Intact, Normal Color, Warm Assessment and Plan - Assessment and Plan (Free Text) Plan: 56F with PMH of Lupus, MS, HTN, Hypothyroid, ITP with cholecystitis -ERCP/EUS showed stones in gallbladder but no stones in duct and no endoscopic abnormality of ampulla or pancreas (see full report) -f/u Hematology for pre-op optimization -Will plan for OR Wednesday afternoon for cholecystectomy -Will DW Dr. Tayler Talavera PGY1 <Benji Lester B - Last Filed: 06/20/17 18:23> Objective - Vital Signs/Intake and Output Vital Signs (last 24 hours): Temp Pulse Resp BP Pulse Ox 98.2 F 66 19 114/79 96 06/17/17 13:00 06/17/17 13:00 06/17/17 13:00 06/17/17 13:00 06/17/17 13:00 - Labs Labs: 06/17/17 04:50 06/17/17 04:50 PT 13.3 Seconds (9.8-13.1) H 06/13/17 06:00 INR 1.3 (0.9-1.2) H 06/13/17 06:00 APTT 32.6 Seconds (25.6-37.1) 06/12/17 18:45 Attending/Attestation - Attestation I have personally seen and examined this patient.: Yes I have fully participated in the care of the patient.: Yes I have reviewed all pertinent clinical information, including history, physical exam and plan: Yes Notes (Text): 06/20/17 18:23 Pt was seen and examined at bedside Agree with above note and assessment S/P EUS Hematology consult for ITP Platelet transfusion Plan d.w pt in detail Risk and benefit explained in detail.
--- NOTE | 2017-06-15 07:55 | CP.PCM.PN ---
<JennifernabeelsammyThanh - Last Filed: 06/15/17 13:34> Subjective - Date & Time of Evaluation Date of Evaluation: 06/15/17 Time of Evaluation: 07:53 - Subjective Subjective: PGY5 GI Fellow Progress Note Patient seen and examined bedside this morning. The patient states she is feeling better and denies any abdominal pain at this time. She tolerated diet last night without difficulty. She denies any nausea, vomiting. 12 system ROS performed and negative except where stated. Objective - Vital Signs/Intake and Output Vital Signs (last 24 hours): Temp Pulse Resp BP Pulse Ox 98.4 F 62 19 126/83 99 06/15/17 05:00 06/15/17 05:00 06/15/17 05:00 06/15/17 05:00 06/15/17 05:00 - Medications Medications: Current Medications Calcium Carbonate (Oscal) 500 mg PO DAILY [facility] Last Admin: 06/14/17 10:27 Dose: Not Given Clonazepam (Klonopin) 1 mg PO TID PRN PRN Reason: Anxiety Duloxetine HCl (Cymbalta) 30 mg PO HS [facility] Last Admin: 06/14/17 22:57 Dose: 30 mg Ergocalciferol (Drisdol 50,000 Intl Units Cap) 1 cap PO MON [facility] Last Admin: 06/14/17 10:27 Dose: Not Given Escitalopram Oxalate (Lexapro) 10 mg PO DAILY [facility] Last Admin: 06/14/17 10:27 Dose: Not Given Home Med (Methylnaltrexone [place] [Relistor]) 450 mg PO DAILY PRN PRN Reason: Constipation Hydroxychloroquine Sulfate (Plaquenil) 200 mg PO BID [facility] Last Admin: 06/14/17 18:41 Dose: 200 mg Sodium Chloride (Sodium Chloride 0.9%) 1,000 mls @ 70 mls/hr IV .[id number] [facility] Last Admin: 06/14/17 03:18 Dose: 70 mls/hr Lactated Ringer's (Lactated Ringer's 500ml) 500 mls @ 75 mls/hr IV .Q6H40M [facility] Piperacillin Sod/Tazobactam (Sod 3.375 gm/ Sodium Chloride) 100 mls @ 100 mls/ hr IVPB 0000,0600,1200,1800 [facility] Last Admin: 06/15/17 05:56 Dose: 100 mls/hr Levothyroxine Sodium (Synthroid) 88 mcg PO DAILY@0630 [facility] Last Admin: 06/15/17 05:56 Dose: 88 mcg Lisinopril (Zestril) 10 mg PO DAILY [facility] Last Admin: 06/14/17 10:26 Dose: Not Given Morphine Sulfate (Morphine) 2 mg IVP Q4 PRN PRN Reason: Pain, moderate (4-7) Last Admin: 06/12/17 04:00 Dose: 2 mg Multivitamins/Minerals (Therapeutic-M Tab) 1 tab PO DAILY [facility] Last Admin: 06/14/17 10:26 Dose: Not Given Ondansetron HCl (Zofran Inj) 4 mg IVP Q4 PRN PRN Reason: Nausea/Vomiting Oxycodone HCl (Oxycodone Immediate Release Tab) 15 mg PO Q8H PRN PRN Reason: Pain, severe (8-10) Last Admin: 06/14/17 18:55 Dose: 15 mg Pantoprazole Sodium (Protonix Ec Tab) 40 mg PO DAILY [facility] Last Admin: 06/14/17 10:26 Dose: Not Given Polyethylene Glycol (Miralax) 17 gm PO DAILY [facility] Last Admin: 06/14/17 10:27 Dose: Not Given Prednisone (Prednisone Tab) 5 mg PO DAILY [facility] Last Admin: 06/14/17 10:26 Dose: Not Given Pregabalin (Lyrica) 100 mg PO Q8@0600,1400,2200 [facility] Last Admin: 06/15/17 05:56 Dose: 100 mg - Labs Labs: 06/15/17 06:50 06/15/17 06:50 PT 13.3 Seconds (9.8-13.1) H 06/13/17 06:00 INR 1.3 (0.9-1.2) H 06/13/17 06:00 APTT 32.6 Seconds (25.6-37.1) 06/12/17 18:45 - Constitutional Appears: Non-toxic, No Acute Distress - Eye Exam Eye Exam: EOMI, PERRL - ENT Exam ENT Exam: Mucous Membranes Moist - Respiratory Exam Respiratory Exam: Clear to Ausculation Bilateral. absent: Rales, Rhonchi, Wheezes - Cardiovascular Exam Cardiovascular Exam: RRR, +S1, +S2 - GI/Abdominal Exam GI & Abdominal Exam: Soft, Normal Bowel Sounds. absent: Distended, Firm, Guarding, Rigid, Tenderness, Organomegaly - Extremities Exam Extremities Exam: Normal Inspection. absent: Pedal Edema - Neurological Exam Neurological Exam: Alert, Awake, Oriented x3 - Psychiatric Exam Psychiatric exam: Normal Affect, Normal Mood - Skin Skin Exam: Dry, Warm Assessment and Plan - Assessment and Plan (Free Text) Assessment: Patient is a 56yo female with PMHx significant for SLE on Plaquenil, Multiple sclerosis, ITP on prednisone, hypothyroidism, hypertension who presented with abdominal pain -Cholelithiasis, biliary colic Plan: -S/P EUS yesterday without evidence of choledocolithiasis -Pt to have laparoscopic cholecystectomy tomorrow per general surgical service -Diet as tolerated today, recommend low fat diet -Plan regarding ITP/thrombocytopenia per hematology, given methylprednisolone 60mg IV yesterday prior to EUS <Konstantin Sylvester MD - Last Filed: 06/15/17 21:10> Objective - Vital Signs/Intake and Output Vital Signs (last 24 hours): Temp Pulse Resp BP Pulse Ox 97.9 F 80 18 104/68 98 06/15/17 16:49 06/15/17 16:49 06/15/17 16:49 06/15/17 16:49 06/15/17 16:49 - Medications Medications: Current Medications Calcium Carbonate (Oscal) 500 mg PO DAILY [facility] Last Admin: 06/15/17 10:24 Dose: 500 mg Clonazepam (Klonopin) 1 mg PO TID PRN PRN Reason: Anxiety Duloxetine HCl (Cymbalta) 30 mg PO HS [facility] Last Admin: 06/14/17 22:57 Dose: 30 mg Ergocalciferol (Drisdol 50,000 Intl Units Cap) 1 cap PO MON [facility] Last Admin: 06/14/17 10:27 Dose: Not Given Escitalopram Oxalate (Lexapro) 10 mg PO DAILY [facility] Last Admin: 06/15/17 10:24 Dose: 10 mg Home Med (Methylnaltrexone [place] [Relistor]) 450 mg PO DAILY PRN PRN Reason: Constipation Hydroxychloroquine Sulfate (Plaquenil) 200 mg PO BID [facility] Last Admin: 06/15/17 18:20 Dose: 200 mg Sodium Chloride (Sodium Chloride 0.9%) 1,000 mls @ 70 mls/hr IV .[id number] [facility] Last Admin: 06/14/17 03:18 Dose: 70 mls/hr Lactated Ringer's (Lactated Ringer's 500ml) 500 mls @ 75 mls/hr IV .Q6H40M [facility] Last Admin: 06/15/17 08:12 Dose: Not Given Piperacillin Sod/Tazobactam (Sod 3.375 gm/ Sodium Chloride) 100 mls @ 100 mls/ hr IVPB 0000,0600,1200,1800 [facility] Last Admin: 06/15/17 18:20 Dose: Not Given Immune Globulin (Octagam 5%) 1,000 mls @ 200 mls/hr IV ONCE ONE Stop: 06/15/17 21:44 Last Admin: 06/15/17 17:58 Dose: 200 mls/hr Levothyroxine Sodium (Synthroid) 88 mcg PO DAILY@0630 [facility] Last Admin: 06/15/17 05:56 Dose: 88 mcg Lisinopril (Zestril) 10 mg PO DAILY [facility] Last Admin: 06/15/17 10:25 Dose: 10 mg Morphine Sulfate (Morphine) 2 mg IVP Q4 PRN PRN Reason: Pain, moderate (4-7) Last Admin: 06/12/17 04:00 Dose: 2 mg Multivitamins/Minerals (Therapeutic-M Tab) 1 tab PO DAILY [facility] Last Admin: 06/15/17 10:24 Dose: 1 tab Ondansetron HCl (Zofran Inj) 4 mg IVP Q4 PRN PRN Reason: Nausea/Vomiting Oxycodone HCl (Oxycodone Immediate Release Tab) 15 mg PO Q8H PRN PRN Reason: Pain, severe (8-10) Last Admin: 06/15/17 10:25 Dose: 15 mg Pantoprazole Sodium (Protonix Ec Tab) 40 mg PO DAILY [facility] Last Admin: 06/15/17 10:24 Dose: 40 mg Polyethylene Glycol (Miralax) 17 gm PO DAILY [facility] Last Admin: 06/15/17 10:22 Dose: Not Given Prednisone (Prednisone Tab) 5 mg PO DAILY [facility] Last Admin: 06/15/17 10:24 Dose: 5 mg Pregabalin (Lyrica) 100 mg PO Q8@0600,1400,2200 [facility] Last Admin: 06/15/17 13:37 Dose: 100 mg - Labs Labs: 06/15/17 06:50 06/15/17 06:50 PT 13.3 Seconds (9.8-13.1) H 06/13/17 06:00 INR 1.3 (0.9-1.2) H 06/13/17 06:00 APTT 32.6 Seconds (25.6-37.1) 06/12/17 18:45 Attending/Attestation - Attestation I have personally seen and examined this patient.: Yes I have fully participated in the care of the patient.: Yes I have reviewed all pertinent clinical information, including history, physical exam and plan: Yes Notes (Text): 06/15/17 21:04 Patient seen at bedside with Gi fellow. This is a 56yo female with PMHx significant for SLE on Plaquenil, Multiple sclerosis, ITP on prednisone, hypothyroidism, hypertension who presented with abdominal pain with acute cholecystitis and biliary colic s/p EUS yesterday without evidence of choledocolithiasis. Scheduled for laparoscopic cholecystectomy tomorrow per general surgical service. Diet as tolerated today. Discussed with tso Dr Trujillo regarding IVIG and platelet infusion for planned surgery
[2017-06-15] MEDS: Lactated Ringer's 500 ML IV SCH ×2 (08:07→08:12)
[2017-06-15] MEDS: POLYETHYLENE GLYCOL 3350 17 GM/Dose PACKET PO SCH (10:22)
[2017-06-15] MEDS: Pantoprazole 40 mg EC Tab PO SCH (10:24)
[2017-06-15] MEDS: Multivitamin With Minerals Tab PO SCH (10:24)
[2017-06-15] MEDS: oxyCODONE 5 mg Immediate Release Tab PO PRN (10:25)
--- NOTE | 2017-06-15 10:27 | CP.PCM.PN ---
<Jami Gonzalez - Last Filed: 06/15/17 10:24> Subjective - Date & Time of Evaluation Date of Evaluation: 06/15/17 Time of Evaluation: 07:50 - Subjective Subjective: patient seen and examined with attending still c/o RUQ pain Denies CP, SOB, N/V, diarrheas afebrile, VS WNL Objective - Vital Signs/Intake and Output Vital Signs (last 24 hours): Temp Pulse Resp BP Pulse Ox 98.9 F 89 20 101/68 98 06/15/17 07:58 06/15/17 07:58 06/15/17 07:58 06/15/17 07:58 06/15/17 07:58 - Medications Medications: Current Medications Calcium Carbonate (Oscal) 500 mg PO DAILY [facility] Last Admin: 06/14/17 10:27 Dose: Not Given Clonazepam (Klonopin) 1 mg PO TID PRN PRN Reason: Anxiety Duloxetine HCl (Cymbalta) 30 mg PO HS [facility] Last Admin: 06/14/17 22:57 Dose: 30 mg Ergocalciferol (Drisdol 50,000 Intl Units Cap) 1 cap PO MON [facility] Last Admin: 06/14/17 10:27 Dose: Not Given Escitalopram Oxalate (Lexapro) 10 mg PO DAILY [facility] Last Admin: 06/14/17 10:27 Dose: Not Given Home Med (Methylnaltrexone [place] [Relistor]) 450 mg PO DAILY PRN PRN Reason: Constipation Hydroxychloroquine Sulfate (Plaquenil) 200 mg PO BID [facility] Last Admin: 06/14/17 18:41 Dose: 200 mg Sodium Chloride (Sodium Chloride 0.9%) 1,000 mls @ 70 mls/hr IV .[id number] [facility] Last Admin: 06/14/17 03:18 Dose: 70 mls/hr Lactated Ringer's (Lactated Ringer's 500ml) 500 mls @ 75 mls/hr IV .[id number] [facility] Last Admin: 06/15/17 08:12 Dose: Not Given Piperacillin Sod/Tazobactam (Sod 3.375 gm/ Sodium Chloride) 100 mls @ 100 mls/ hr IVPB 0000,0600,1200,1800 [facility] Last Admin: 06/15/17 05:56 Dose: 100 mls/hr Levothyroxine Sodium (Synthroid) 88 mcg PO DAILY@0630 [facility] Last Admin: 06/15/17 05:56 Dose: 88 mcg Lisinopril (Zestril) 10 mg PO DAILY [facility] Last Admin: 06/14/17 10:26 Dose: Not Given Morphine Sulfate (Morphine) 2 mg IVP Q4 PRN PRN Reason: Pain, moderate (4-7) Last Admin: 06/12/17 04:00 Dose: 2 mg Multivitamins/Minerals (Therapeutic-M Tab) 1 tab PO DAILY [facility] Last Admin: 06/14/17 10:26 Dose: Not Given Ondansetron HCl (Zofran Inj) 4 mg IVP Q4 PRN PRN Reason: Nausea/Vomiting Oxycodone HCl (Oxycodone Immediate Release Tab) 15 mg PO Q8H PRN PRN Reason: Pain, severe (8-10) Last Admin: 06/14/17 18:55 Dose: 15 mg Pantoprazole Sodium (Protonix Ec Tab) 40 mg PO DAILY [facility] Last Admin: 06/14/17 10:26 Dose: Not Given Polyethylene Glycol (Miralax) 17 gm PO DAILY [facility] Last Admin: 06/14/17 10:27 Dose: Not Given Prednisone (Prednisone Tab) 5 mg PO DAILY [facility] Last Admin: 06/14/17 10:26 Dose: Not Given Pregabalin (Lyrica) 100 mg PO Q8@0600,1400,2200 [facility] Last Admin: 06/15/17 05:56 Dose: 100 mg - Labs Labs: 06/15/17 06:50 06/15/17 06:50 PT 13.3 Seconds (9.8-13.1) H 06/13/17 06:00 INR 1.3 (0.9-1.2) H 06/13/17 06:00 APTT 32.6 Seconds (25.6-37.1) 06/12/17 18:45 - Constitutional Appears: No Acute Distress - ENT Exam ENT Exam: Mucous Membranes Moist - Respiratory Exam Respiratory Exam: Clear to Ausculation Bilateral, NORMAL BREATHING PATTERN - Cardiovascular Exam Cardiovascular Exam: REGULAR RHYTHM, +S1, +S2 - GI/Abdominal Exam GI & Abdominal Exam: Soft, Tenderness (tender to palpation of RUQ, no rebound tenderness noted), Normal Bowel Sounds. absent: Distended, Guarding, Rigid - Neurological Exam Neurological Exam: Alert, Awake, Oriented x3 - Skin Skin Exam: Dry, Intact Assessment and Plan (2) History of ITP Assessment & Plan: platelet today 52 Continue Prednisone 5 mg daily as per Hemo s/p platelet transfusion f/u platelet in CBC f/u hemo, Dr. Trujillo recommendation She should continue to follow up with Dr. Connelly and her roto rooter operator at discharge. Status: Chronic (3) Abdominal pain Assessment & Plan: 2/2 cholecystitis still present S/P ERCP/EUS, showed stones in gallbladder but no stones in duct and no endoscopic abnormality of ampulla or pancreas (see full report) Pt to have laparoscopic cholecystectomy tomorrow per general surgical service Surgical team Will plan for OR Wednesday afternoon for cholecystectomy -f/u surgery recommendations -f/u GI recommendations Status: Acute <Liz,Phillip K - Last Filed: 06/22/17 17:17> Objective - Vital Signs/Intake and Output Vital Signs (last 24 hours): Temp Pulse Resp BP Pulse Ox 98.2 F 66 19 114/79 96 06/17/17 13:00 06/17/17 13:00 06/17/17 13:00 06/17/17 13:00 06/17/17 13:00 - Labs Labs: 06/17/17 04:50 06/17/17 04:50 PT 13.3 Seconds (9.8-13.1) H 06/13/17 06:00 INR 1.3 (0.9-1.2) H 06/13/17 06:00 APTT 32.6 Seconds (25.6-37.1) 06/12/17 18:45 Assessment and Plan - Assessment and Plan (Free Text) Assessment: Patient was personally seen and examined by me in rounds with residents. Available labs and diagnostic data reviewed. Case, Patient's condition and management plan Discussed with residents in rounds. Agree with resident's progress note. Plan: As ordered.
[2017-06-15] MEDS ORDERED: IMMUNE GLOBULIN 50 MG/ML IV ONE (16:45)
[2017-06-16] MEDS: Piperacillin/Tazobact 3.375 GM in Sodium Chloride 0.9% 100 ML IVPB SCH ×4 (00:59→23:41)
[2017-06-16] MEDS: Sodium Chloride 0.9% 1,000 ML IV SCH (01:01)
[2017-06-16] MEDS: Levothyroxine 88 MCG TAB PO SCH (06:56)
[2017-06-16 08:07] LABS: BASO % 0.6 % (0.0-2.0); EOS # 0.1 K/uL (0.0-0.7); EOS % 1.9 % (0.0-4.0); HEMATOCRIT 37.8 % (34.0-47.0); LYMPH # 3.1 K/uL (1.0-4.3); LYMPH % 43.6 % (20.0-40.0); MEAN CELL VOLUME 83.8 fl (81.0-99.0); MEAN CORPUSCULAR HEMOGLOBIN 27.2 pg (27.0-31.0); MEAN CORPUSCULAR HGB CONC 32.4 g/dL (33.0-37.0); MEAN PLATELET VOLUME 12.1 fl (7.2-11.7); MONO % 13.8 % (0.0-10.0); NEUT # 2.9 K/uL (1.8-7.0); NEUT % 40.1 % (50.0-75.0); NRBC % 0.1 % (0.0-0.0); RED CELL DISTRIBUTION WIDTH 14.4 % (11.5-14.5); WHITE BLOOD COUNT 7.1 K/uL (4.8-10.8)
[2017-06-16 08:31] LABS: ALB/GLOB RATIO 0.9 (1.0-2.1); ALKALINE PHOSPHATASE 122 U/L (38-126); ALT/SGPT 71 U/L (9-52); AST/SGOT 31 U/L (14-36); BILIRUBIN,TOTAL 0.6 mg/dl (0.2-1.3); BLOOD UREA NITROGEN 4 mg/dl (7-17); CALCIUM 8.4 mg/dL (8.4-10.2); CARBON DIOXIDE 23 mmol/L (22-30); CHLORIDE 109 mmol/L (98-107); GFR AFRICAN-AMERICAN > 60; GLUCOSE,RANDOM 83 mg/dL (65-105); SODIUM 141 mmol/l (132-148); TOTAL PROTEIN 8.5 G/DL (6.3-8.2)
[2017-06-16] MEDS: Pantoprazole 40 mg EC Tab PO SCH (09:02)
[2017-06-16] MEDS: Multivitamin With Minerals Tab PO SCH (09:02)
[2017-06-16] MEDS: POLYETHYLENE GLYCOL 3350 17 GM/Dose PACKET PO SCH (09:02)
--- NOTE | 2017-06-16 12:25 | PN ---
MEDICAL FOLLOWUP DATE: 06/16/2017 SUBJECTIVE: The patient seen and examined, Interim events noted. Consult note appreciated, Hematology, Surgery and GI followup and intervention. No pain appreciated. The patient remains in regular medical floor with complaints of abdominal pain that is much better and improved. No chest pain, no shortness of breath, no new other complaints. PHYSICAL EXAMINATION: GENERAL: The patient is in no acute distress. VITAL SIGNS: Stable. HEART: S1, S2. Normal rate and rhythm. LUNGS: Good bilateral air exchange. ABDOMEN: Soft and nontender. Abdomen exam again shows no sign of acute abdomen. No guarding. No rigidity. No rebound. Bowel sounds are present and are normal. EXTREMITIES: No edema, no calf swelling, no tenderness, no acute ischemia. PIPE FOREMAN: Essentially unchanged. DIAGNOSTIC DATA: Available diagnostic data reviewed. Overall, the patient is medically stable. The patient is tentatively scheduled for surgery today. Phillip Liz MD
[2017-06-16] MEDS ORDERED: Midazolam 2 MG/2 ML VIAL ONE (15:49)
[2017-06-16] MEDS ORDERED: Propofol 10 mg/ml Inj (20 ML) ONE (15:49)
[2017-06-16] MEDS ORDERED: Rocuronium 10 mg/ml (5 ml) ONE (15:50)
[2017-06-16] MEDS ORDERED: Lactated Ringer's 1,000 ML IV ONE (16:14)
[2017-06-16] MEDS ORDERED: Bupivacaine 0.5% Inj(30mL) ONE (16:22)
[2017-06-16] MEDS ORDERED: Lidocaine 1% Inj (20ml) ONE (16:22)
[2017-06-16] MEDS ORDERED: Lidocaine 1% Inj (20ml) IJ ONE ×2 (16:27)
[2017-06-16] MEDS ORDERED: Bupivacaine 0.5% 50 ML IJ ONE ×2 (16:27)
[2017-06-16] MEDS ORDERED: Sevoflurane - Inhalation Anesthetic Liq (250 ml) ONE (16:37)
[2017-06-16] MEDS ORDERED: Neostigmine Methylsulfate 3mg/3ml Syringe IV ONE (17:00)
[2017-06-16] MEDS ORDERED: Neostigmine Methylsulfate 2 MG/2 ML ML IV ONE (17:00)
--- NOTE | 2017-06-16 17:23 | PCM.SURG1 ---
Surgeon's Initial Post Op Note - Surgeon's Notes Surgeon: Tayler Shipwright Apprentice: Dinah PGY3, Angel PGY2 Type of Anesthesia: General Endo, Local Pre-Operative Diagnosis: Cholethiasis Operative Findings: Gallstones Post-Operative Diagnosis: Same Operation Performed: laparscopic cholecystectomy Specimen/Specimens Removed: gallbladder Estimated Blood Loss: EBL {In ML}: 10 Blood Products Given: N/A Drains Used: No Drains Post-Op Condition: Good Date of Surgery/Procedure: 06/16/17 Time of Surgery/Procedure: 17:25
[2017-06-16] MEDS: HYDROmorphone 0.5 mg/0.5 ml ISec IVP PRN ×5 (17:40→18:40)
[2017-06-16] MEDS ORDERED: Piperacillin/Tazobact 3.375 gm Inj IVPB ONE (18:00)
[2017-06-16] MEDS: Lactated Ringer's 1,000 ML IV SCH (23:46)
[2017-06-17 05:52] LABS: HEMATOCRIT 38.1 % (34.0-47.0); MEAN CELL VOLUME 82.7 fl (81.0-99.0); MEAN CORPUSCULAR HEMOGLOBIN 26.1 pg (27.0-31.0); MEAN CORPUSCULAR HGB CONC 31.6 g/dL (33.0-37.0); RED CELL DISTRIBUTION WIDTH 13.8 % (11.5-14.5); WHITE BLOOD COUNT 12.3 K/uL (4.8-10.8)
[2017-06-17 06:00] LABS: ALB/GLOB RATIO 0.9 (1.0-2.1); ALKALINE PHOSPHATASE 125 U/L (38-126); ALT/SGPT 67 U/L (9-52); AST/SGOT 46 U/L (14-36); BILIRUBIN,TOTAL 0.6 mg/dl (0.2-1.3); BLOOD UREA NITROGEN 4 mg/dl (7-17); CALCIUM 8.2 mg/dL (8.4-10.2); CARBON DIOXIDE 25 mmol/L (22-30); CHLORIDE 107 mmol/L (98-107); GFR AFRICAN-AMERICAN > 60; GLUCOSE,RANDOM 78 mg/dL (65-105); POTASSIUM 3.5 MMOL/L (3.6-5.0); SODIUM 143 mmol/l (132-148); TOTAL PROTEIN 7.6 G/DL (6.3-8.2)
[2017-06-17] MEDS: Piperacillin/Tazobact 3.375 GM in Sodium Chloride 0.9% 100 ML IVPB SCH ×2 (06:09→11:46)
[2017-06-17] MEDS: Levothyroxine 88 MCG TAB PO SCH (06:10)
[2017-06-17] MEDS: Lactated Ringer's 500 ML IV SCH (06:44)
--- NOTE | 2017-06-17 07:49 | CP.PCM.PN ---
<Thanh Colindres - Last Filed: 06/17/17 12:48> Subjective - Date & Time of Evaluation Date of Evaluation: 06/17/17 Time of Evaluation: 07:48 - Subjective Subjective: PGY5 GI Fellow Progress Note Patient seen and examined bedside this morning. The patient admits to some abdominal soreness following surgical procedure. Having some difficulty urinating. Denies any nausea, vomiting. No BM in 2 days. 12 system ROS performed and negative except where stated. Objective - Vital Signs/Intake and Output Vital Signs (last 24 hours): Temp Pulse Resp BP Pulse Ox 98.4 F 61 20 130/83 98 06/17/17 07:26 06/17/17 07:26 06/17/17 07:26 06/17/17 07:26 06/17/17 07:26 - Medications Medications: Current Medications Calcium Carbonate (Oscal) 500 mg PO DAILY [facility] Last Admin: 06/16/17 09:02 Dose: Not Given Clonazepam (Klonopin) 1 mg PO TID PRN PRN Reason: Anxiety Last Admin: 06/15/17 22:31 Dose: 1 mg Duloxetine HCl (Cymbalta) 30 mg PO HS [facility] Last Admin: 06/16/17 22:15 Dose: 30 mg Ergocalciferol (Drisdol 50,000 Intl Units Cap) 1 cap PO MON [facility] Last Admin: 06/14/17 10:27 Dose: Not Given Escitalopram Oxalate (Lexapro) 10 mg PO DAILY [facility] Last Admin: 06/16/17 09:01 Dose: Not Given Home Med (Methylnaltrexone [place] [Relistor]) 450 mg PO DAILY PRN PRN Reason: Constipation Hydroxychloroquine Sulfate (Plaquenil) 200 mg PO BID [facility] Last Admin: 06/16/17 09:02 Dose: Not Given Sodium Chloride (Sodium Chloride 0.9%) 1,000 mls @ 70 mls/hr IV .[id number] [facility] Last Admin: 06/16/17 01:01 Dose: 70 mls/hr Lactated Ringer's (Lactated Ringer's 500ml) 500 mls @ 75 mls/hr IV .[id number] [facility] Last Admin: 06/17/17 06:44 Dose: Not Given Piperacillin Sod/Tazobactam (Sod 3.375 gm/ Sodium Chloride) 100 mls @ 100 mls/ hr IVPB 0000,0600,1200,1800 [facility] Last Admin: 06/17/17 06:09 Dose: 100 mls/hr Lactated Ringer's (Lactated Ringer's) 1,000 mls @ 44 mls/hr IV .[id number] [facility] Last Admin: 06/16/17 23:46 Dose: 44 mls/hr Levothyroxine Sodium (Synthroid) 88 mcg PO DAILY@0630 [facility] Last Admin: 06/17/17 06:10 Dose: 88 mcg Lisinopril (Zestril) 10 mg PO DAILY [facility] Last Admin: 06/16/17 13:14 Dose: 10 mg Morphine Sulfate (Morphine) 4 mg IVP Q4 PRN PRN Reason: Pain, moderate (4-7) Last Admin: 06/17/17 06:08 Dose: 4 mg Multivitamins/Minerals (Therapeutic-M Tab) 1 tab PO DAILY [facility] Last Admin: 06/16/17 09:02 Dose: Not Given Ondansetron HCl (Zofran Inj) 4 mg IVP Q4 PRN PRN Reason: Nausea/Vomiting Oxycodone HCl (Oxycodone Immediate Release Tab) 15 mg PO Q8H PRN PRN Reason: Pain, severe (8-10) Last Admin: 06/15/17 10:25 Dose: 15 mg Pantoprazole Sodium (Protonix Ec Tab) 40 mg PO DAILY [facility] Last Admin: 06/16/17 09:02 Dose: Not Given Polyethylene Glycol (Miralax) 17 gm PO DAILY [facility] Last Admin: 06/16/17 09:02 Dose: Not Given Prednisone (Prednisone Tab) 5 mg PO DAILY [facility] Last Admin: 06/16/17 09:02 Dose: Not Given Pregabalin (Lyrica) 100 mg PO Q8@0600,1400,2200 [facility] Last Admin: 06/17/17 06:43 Dose: 100 mg - Labs Labs: 06/17/17 04:50 06/17/17 04:50 PT 13.3 Seconds (9.8-13.1) H 06/13/17 06:00 INR 1.3 (0.9-1.2) H 06/13/17 06:00 APTT 32.6 Seconds (25.6-37.1) 06/12/17 18:45 - Constitutional Appears: Non-toxic, No Acute Distress - Eye Exam Eye Exam: EOMI, PERRL - ENT Exam ENT Exam: Mucous Membranes Moist - Respiratory Exam Respiratory Exam: Clear to Ausculation Bilateral. absent: Rales, Rhonchi, Wheezes - Cardiovascular Exam Cardiovascular Exam: RRR, +S1, +S2 - GI/Abdominal Exam GI & Abdominal Exam: Soft, Tenderness, Normal Bowel Sounds. absent: Distended, Firm, Guarding, Rigid, Organomegaly Additional comments: s/p laparoscopic surgery - small surgical wounds noted - Extremities Exam Extremities Exam: Normal Inspection. absent: Pedal Edema - Neurological Exam Neurological Exam: Alert, Awake, Oriented x3 - Psychiatric Exam Psychiatric exam: Normal Affect, Normal Mood - Skin Skin Exam: Dry, Warm Assessment and Plan - Assessment and Plan (Free Text) Assessment: Patient is a 56yo female with PMHx significant for SLE on Plaquenil, Multiple sclerosis, ITP on prednisone, hypothyroidism, hypertension who presented with abdominal pain -Cholelithiasis, biliary colic Plan: -S/P laparoscopic cholecystectomy POD#1 -EUS performed during this admission, no evidence of choledocolithiasis -Plan per surgical team -No further recommendations at this time, will sign off. Thank you for allowing us to participate in the care of your patient. <Konstantin Sylvester MD - Last Filed: 06/17/17 14:56> Objective - Vital Signs/Intake and Output Vital Signs (last 24 hours): Temp Pulse Resp BP Pulse Ox 98.2 F 66 19 114/79 96 06/17/17 13:00 06/17/17 13:00 06/17/17 13:00 06/17/17 13:00 06/17/17 13:00 - Medications Medications: Current Medications Calcium Carbonate (Oscal) 500 mg PO DAILY [facility] Last Admin: 06/17/17 09:36 Dose: 500 mg Clonazepam (Klonopin) 1 mg PO TID PRN PRN Reason: Anxiety Last Admin: 06/15/17 22:31 Dose: 1 mg Duloxetine HCl (Cymbalta) 30 mg PO HS [facility] Last Admin: 06/16/17 22:15 Dose: 30 mg Ergocalciferol (Drisdol 50,000 Intl Units Cap) 1 cap PO MON [facility] Last Admin: 06/14/17 10:27 Dose: Not Given Escitalopram Oxalate (Lexapro) 10 mg PO DAILY [facility] Last Admin: 06/17/17 09:36 Dose: 10 mg Home Med (Methylnaltrexone [place] [Relistor]) 450 mg PO DAILY PRN PRN Reason: Constipation Hydroxychloroquine Sulfate (Plaquenil) 200 mg PO BID [facility] Last Admin: 06/17/17 09:37 Dose: 200 mg Sodium Chloride (Sodium Chloride 0.9%) 1,000 mls @ 70 mls/hr IV .[id number] [facility] Last Admin: 06/17/17 08:05 Dose: Not Given Lactated Ringer's (Lactated Ringer's 500ml) 500 mls @ 75 mls/hr IV .Q6H40M [facility] Last Admin: 06/17/17 06:44 Dose: Not Given Piperacillin Sod/Tazobactam (Sod 3.375 gm/ Sodium Chloride) 100 mls @ 100 mls/ hr IVPB 0000,0600,1200,1800 [facility] Last Admin: 06/17/17 11:46 Dose: 100 mls/hr Lactated Ringer's (Lactated Ringer's) 1,000 mls @ 44 mls/hr IV .[id number] [facility] Last Admin: 06/16/17 23:46 Dose: 44 mls/hr Levothyroxine Sodium (Synthroid) 88 mcg PO DAILY@0630 [facility] Last Admin: 06/17/17 06:10 Dose: 88 mcg Lisinopril (Zestril) 10 mg PO DAILY [facility] Last Admin: 06/17/17 09:37 Dose: 10 mg Morphine Sulfate (Morphine) 4 mg IVP Q4 PRN PRN Reason: Pain, moderate (4-7) Last Admin: 06/17/17 06:08 Dose: 4 mg Multivitamins/Minerals (Therapeutic-M Tab) 1 tab PO DAILY [facility] Last Admin: 06/17/17 09:36 Dose: 1 tab Ondansetron HCl (Zofran Inj) 4 mg IVP Q4 PRN PRN Reason: Nausea/Vomiting Oxycodone HCl (Oxycodone Immediate Release Tab) 15 mg PO Q8H PRN PRN Reason: Pain, severe (8-10) Last Admin: 06/17/17 09:28 Dose: 15 mg Pantoprazole Sodium (Protonix Ec Tab) 40 mg PO DAILY [facility] Last Admin: 06/17/17 09:36 Dose: 40 mg Polyethylene Glycol (Miralax) 17 gm PO DAILY [facility] Last Admin: 06/17/17 09:37 Dose: 17 gm Prednisone (Prednisone Tab) 5 mg PO DAILY [facility] Last Admin: 06/17/17 09:36 Dose: 5 mg Pregabalin (Lyrica) 100 mg PO Q8@0600,1400,2200 [facility] Last Admin: 06/17/17 06:43 Dose: 100 mg - Labs Labs: 06/17/17 04:50 06/17/17 04:50 PT 13.3 Seconds (9.8-13.1) H 06/13/17 06:00 INR 1.3 (0.9-1.2) H 06/13/17 06:00 APTT 32.6 Seconds (25.6-37.1) 06/12/17 18:45 Attending/Attestation - Attestation I have personally seen and examined this patient.: Yes I have fully participated in the care of the patient.: Yes I have reviewed all pertinent clinical information, including history, physical exam and plan: Yes Notes (Text): 06/17/17 14:54 Patient seen at bedside with GI fellow. This is a 56 yo female with PMHx significant for SLE on Plaquenil, Multiple sclerosis, ITP on prednisone, hypothyroidism, hypertension who presented with abdominal pain with acute cholecystitis and biliary colic s/p EUS without evidence of choledocolithiasis s /p laproscopic CCY. Diet as per surgical team. Ambulation and out of bed to chair. Incentive spirometry. Thank you for letting us participate in the care of your patient
[2017-06-17] MEDS: Sodium Chloride 0.9% 1,000 ML IV SCH (08:05)
[2017-06-17] MEDS: oxyCODONE 5 mg Immediate Release Tab PO PRN (09:28)
[2017-06-17] MEDS: Multivitamin With Minerals Tab PO SCH (09:36)
[2017-06-17] MEDS: Pantoprazole 40 mg EC Tab PO SCH (09:36)
[2017-06-17] MEDS: POLYETHYLENE GLYCOL 3350 17 GM/Dose PACKET PO SCH (09:37)
[2017-06-17] MEDS ORDERED: Potassium Chloride 20 mEq ER Tab PO ONE (10:24)
--- NOTE | 2017-06-17 11:10 | CP.PCM.PN ---
<Mina Talavera - Last Filed: 06/17/17 14:55> Subjective - Date & Time of Evaluation Date of Evaluation: 06/17/17 Time of Evaluation: 11:03 - Subjective Subjective: General Surgery Progress Note for Dr. Lester Patient seen and examined at bedside this AM. No acute event overnight. Patient resting in bed comfortably. She is POD #1 s/p cholecystectomy. She is experiences some pain at incision sites but controlled with pain medication. She tolerated diet. Denies fever/chills, cp, sob, palpitations, n/v/d. Objective - Vital Signs/Intake and Output Vital Signs (last 24 hours): Temp Pulse Resp BP Pulse Ox 98.4 F 61 20 130/83 98 06/17/17 07:26 06/17/17 09:37 06/17/17 07:26 06/17/17 09:37 06/17/17 07:26 - Medications Medications: Current Medications Calcium Carbonate (Oscal) 500 mg PO DAILY [facility] Last Admin: 06/17/17 09:36 Dose: 500 mg Clonazepam (Klonopin) 1 mg PO TID PRN PRN Reason: Anxiety Last Admin: 06/15/17 22:31 Dose: 1 mg Duloxetine HCl (Cymbalta) 30 mg PO HS [facility] Last Admin: 06/16/17 22:15 Dose: 30 mg Ergocalciferol (Drisdol 50,000 Intl Units Cap) 1 cap PO MON [facility] Last Admin: 06/14/17 10:27 Dose: Not Given Escitalopram Oxalate (Lexapro) 10 mg PO DAILY [facility] Last Admin: 06/17/17 09:36 Dose: 10 mg Home Med (Methylnaltrexone [place] [Relistor]) 450 mg PO DAILY PRN PRN Reason: Constipation Hydroxychloroquine Sulfate (Plaquenil) 200 mg PO BID [facility] Last Admin: 06/17/17 09:37 Dose: 200 mg Sodium Chloride (Sodium Chloride 0.9%) 1,000 mls @ 70 mls/hr IV .[id number] [facility] Last Admin: 06/17/17 08:05 Dose: Not Given Lactated Ringer's (Lactated Ringer's 500ml) 500 mls @ 75 mls/hr IV .[id number] [facility] Last Admin: 06/17/17 06:44 Dose: Not Given Piperacillin Sod/Tazobactam (Sod 3.375 gm/ Sodium Chloride) 100 mls @ 100 mls/ hr IVPB 0000,0600,1200,1800 [facility] Last Admin: 06/17/17 06:09 Dose: 100 mls/hr Lactated Ringer's (Lactated Ringer's) 1,000 mls @ 44 mls/hr IV .[id number] [facility] Last Admin: 06/16/17 23:46 Dose: 44 mls/hr Levothyroxine Sodium (Synthroid) 88 mcg PO DAILY@0630 [facility] Last Admin: 06/17/17 06:10 Dose: 88 mcg Lisinopril (Zestril) 10 mg PO DAILY [facility] Last Admin: 06/17/17 09:37 Dose: 10 mg Morphine Sulfate (Morphine) 4 mg IVP Q4 PRN PRN Reason: Pain, moderate (4-7) Last Admin: 06/17/17 06:08 Dose: 4 mg Multivitamins/Minerals (Therapeutic-M Tab) 1 tab PO DAILY [facility] Last Admin: 06/17/17 09:36 Dose: 1 tab Ondansetron HCl (Zofran Inj) 4 mg IVP Q4 PRN PRN Reason: Nausea/Vomiting Oxycodone HCl (Oxycodone Immediate Release Tab) 15 mg PO Q8H PRN PRN Reason: Pain, severe (8-10) Last Admin: 06/17/17 09:28 Dose: 15 mg Pantoprazole Sodium (Protonix Ec Tab) 40 mg PO DAILY [facility] Last Admin: 06/17/17 09:36 Dose: 40 mg Polyethylene Glycol (Miralax) 17 gm PO DAILY [facility] Last Admin: 06/17/17 09:37 Dose: 17 gm Prednisone (Prednisone Tab) 5 mg PO DAILY [facility] Last Admin: 06/17/17 09:36 Dose: 5 mg Pregabalin (Lyrica) 100 mg PO Q8@0600,1400,2200 [facility] Last Admin: 06/17/17 06:43 Dose: 100 mg - Labs Labs: 06/17/17 04:50 06/17/17 04:50 PT 13.3 Seconds (9.8-13.1) H 06/13/17 06:00 INR 1.3 (0.9-1.2) H 06/13/17 06:00 APTT 32.6 Seconds (25.6-37.1) 06/12/17 18:45 - Constitutional Appears: No Acute Distress - Head Exam Head Exam: ATRAUMATIC, NORMOCEPHALIC - Eye Exam Eye Exam: Normal appearance - ENT Exam ENT Exam: Mucous Membranes Moist - Neck Exam Neck Exam: Full ROM - Respiratory Exam Respiratory Exam: NORMAL BREATHING PATTERN - Cardiovascular Exam Cardiovascular Exam: REGULAR RHYTHM - GI/Abdominal Exam GI & Abdominal Exam: Soft, Tenderness (at incision sites). absent: Distended, Firm, Guarding, Rigid, Rebound Additional comments: dressings over incisions are clean, dry, and intact - Extremities Exam Extremities Exam: absent: Calf Tenderness - Neurological Exam Neurological Exam: Alert, Awake, Oriented x3 - Psychiatric Exam Psychiatric exam: Normal Affect, Normal Mood - Skin Skin Exam: Dry, Intact, Normal Color, Warm Assessment and Plan - Assessment and Plan (Free Text) Plan: 56F with PMH of Lupus, MS, HTN, Hypothyroid, ITP who had cholecystitis, s/p lap cholecystectomy POD #1 -Regular diet -IV fluids -IV ABX -Anti-emetics/Analgesics -Physical therapy and OOB -Will DW Dr. Tayler Talavera PGY1 <Benji Lester - Last Filed: 06/20/17 18:28> Objective - Vital Signs/Intake and Output Vital Signs (last 24 hours): Temp Pulse Resp BP Pulse Ox 98.2 F 66 19 114/79 96 06/17/17 13:00 06/17/17 13:00 06/17/17 13:00 06/17/17 13:00 06/17/17 13:00 - Labs Labs: 06/17/17 04:50 06/17/17 04:50 PT 13.3 Seconds (9.8-13.1) H 06/13/17 06:00 INR 1.3 (0.9-1.2) H 06/13/17 06:00 APTT 32.6 Seconds (25.6-37.1) 06/12/17 18:45 Attending/Attestation - Attestation I have personally seen and examined this patient.: Yes I have fully participated in the care of the patient.: Yes I have reviewed all pertinent clinical information, including history, physical exam and plan: Yes Notes (Text): 06/20/17 18:28 Pt was seen and examined at bedside Agree with above note and assessment
[2017-06-17] MEDS ORDERED: Potassium Chloride 10 mEq ER Tab PO ONE (12:17)
[2017-06-17 13:01] VITALS: BP 114/79; PULSE 66; RESP 19; TEMP 98.2; O2SAT 96
--- NOTE | 2017-06-17 15:07 | CP.PCM.DIS ---
<Jami Gonzalez - Last Filed: 06/17/17 15:05> Provider - Provider Date of Admission: 06/11/17 06:31 Attending physician: Phillip Liz MD Time Spent in preparation of Discharge (in minutes): 30 Diagnosis - Discharge Diagnosis (1) S/P laparoscopic cholecystectomy Status: Acute Comment: on POD #1. Pain controlled with medications. Cleared by surgical team. F/u with Dr. Jolley in 1 week. F/u with Surgeon in 1 week, Dr. Lester. Complete PO antibiotics. (2) History of ITP Status: Chronic Comment: stable, platelet today 124. s/p IVIG and platelets transfusion. f/u with PMD as outpatient Hospital Course - Lab Results Lab Results: Micro Results 06/11/17 10:05 Blood Blood Culture - Final NO GROWTH AFTER 5 DAYS 06/11/17 10:05 Blood Gram Stain - Final TEST NOT PERFORMED Most Recent Lab Values WBC 12.3 K/uL (4.8-10.8) H D 06/17/17 04:50 RBC 4.61 Mil/uL (3.80-5.20) 06/17/17 04:50 Hgb 12.0 g/dL (12.0-16.0) 06/17/17 04:50 Hct 38.1 % (34.0-47.0) 06/17/17 04:50 MCV 82.7 fl (81.0-99.0) 06/17/17 04:50 MCH 26.1 pg (27.0-31.0) L 06/17/17 04:50 MCHC 31.6 g/dL (33.0-37.0) L 06/17/17 04:50 RDW 13.8 % (11.5-14.5) 06/17/17 04:50 Plt Count 124 K/uL (130-400) L D 06/17/17 04:50 MPV 12.1 fl (7.2-11.7) H 06/16/17 06:25 Neut % (Auto) 40.1 % (50.0-75.0) L 06/16/17 06:25 Lymph % (Auto) 43.6 % (20.0-40.0) H 06/16/17 06:25 [place] % (Auto) 13.8 % (0.0-10.0) H 06/16/17 06:25 Eos % (Auto) 1.9 % (0.0-4.0) 06/16/17 06:25 Baso % (Auto) 0.6 % (0.0-2.0) 06/16/17 06:25 Neut # 2.9 K/uL (1.8-7.0) 06/16/17 06:25 Lymph # 3.1 K/uL (1.0-4.3) 06/16/17 06:25 [place] # 1.0 K/uL (0.0-0.8) H 06/16/17 06:25 Eos # 0.1 K/uL (0.0-0.7) 06/16/17 06:25 Baso # 0.0 K/uL (0.0-0.2) 06/16/17 06:25 PT 13.3 Seconds (9.8-13.1) H 06/13/17 06:00 INR 1.3 (0.9-1.2) H 06/13/17 06:00 APTT 32.6 Seconds (25.6-37.1) 06/12/17 18:45 pO2 28 mm/Hg (30-55) L 06/11/17 10:03 VBG pH 7.35 (7.32-7.43) 06/11/17 10:03 VBG pCO2 53 mmHg (40-60) 06/11/17 10:03 VBG HCO3 25.6 mmol/L 06/11/17 10:03 VBG Total CO2 30.9 mmol/L (22-28) H 06/11/17 10:03 VBG O2 Sat (Calc) 60.7 % (40-65) 06/11/17 10:03 VBG Base Excess 2.5 mmol/L (0.0-2.0) H 06/11/17 10:03 VBG Potassium 4.1 mmol/L (3.6-5.2) 06/11/17 10:03 Sodium 140.0 mmol/L (132-148) 06/11/17 10:03 Chloride 109.0 mmol/L (98-107) H 06/11/17 10:03 Glucose 90 mg/dL (65-105) 06/11/17 10:03 Lactate 1.7 mmol/L (0.7-2.1) 06/11/17 10:03 FiO2 21.0 % 06/11/17 10:03 Sodium 143 mmol/l (132-148) 06/17/17 04:50 Potassium 3.5 MMOL/L (3.6-5.0) L 06/17/17 04:50 Chloride 107 mmol/L (98-107) 06/17/17 04:50 Carbon Dioxide 25 mmol/L (22-30) 06/17/17 04:50 Anion Gap 15 (10-20) 06/17/17 04:50 BUN 4 mg/dl (7-17) L 06/17/17 04:50 Creatinine 0.8 mg/dL (0.7-1.2) 06/17/17 04:50 Est GFR ( Amer) > 60 06/17/17 04:50 Est GFR (Non-Af Amer) > 60 06/17/17 04:50 Random Glucose 78 mg/dL (65-105) 06/17/17 04:50 Calcium 8.2 mg/dL (8.4-10.2) L 06/17/17 04:50 Iron 29 ug/dL (37-170) L 06/13/17 14:30 TIBC 256 ug/dL (250-450) 06/13/17 14:30 % Saturation 11 % (20-55) L 06/13/17 14:30 Ferritin 72.6 ng/mL 06/14/17 06:30 Total Bilirubin 0.6 mg/dl (0.2-1.3) 06/17/17 04:50 AST 46 U/L (14-36) H D 06/17/17 04:50 ALT 67 U/L (9-52) H 06/17/17 04:50 Alkaline Phosphatase 125 U/L (38-126) 06/17/17 04:50 Total Protein 7.6 G/DL (6.3-8.2) 06/17/17 04:50 Albumin 3.6 g/dL (3.5-5.0) 06/17/17 04:50 Globulin 4.0 gm/dL (2.2-3.9) H 06/17/17 04:50 Albumin/Globulin Ratio 0.9 (1.0-2.1) L 06/17/17 04:50 Triglycerides 80 mg/DL (0-149) 06/12/17 10:30 Cholesterol 183 mg/dL (0-199) 06/12/17 10:30 LDL Cholesterol Direct 138 mg/dL (0-129) H 06/12/17 10:30 HDL Cholesterol 46 MG/DL (30-70) 06/12/17 10:30 Lipase 28 U/L (23-300) 06/13/17 06:00 Vitamin B12 818 pg/mL (239-931) 06/12/17 10:30 Folate > 20.0 ng/mL 06/12/17 10:30 Thyroxine (T4) 8.57 ug/dl (5.5-11.0) 06/12/17 10:30 Total T3 0.709 nmol/L (1.49-2.60) L 06/12/17 10:30 T3 Uptake 35.2 % (23.0-41.0) 06/12/17 10:30 TSH 3rd Generation 2.30 mIU/ML (0.46-4.68) 06/12/17 10:30 Venous Blood Potassium 4.1 mmol/L (3.6-5.2) 06/11/17 10:03 Urine Color Yellow (YELLOW) 06/11/17 07:30 Urine Clarity Clear (Clear) 06/11/17 07:30 Urine pH 8.0 (5.0-8.0) 06/11/17 07:30 Ur Specific [place] 1.005 (1.003-1.030) 06/11/17 07:30 Urine Protein Negative mg/dL (NEGATIVE) 06/11/17 07:30 Urine Glucose (UA) Neg mg/dL (Normal) 06/11/17 07:30 Urine Ketones Negative mg/dL (NEGATIVE) 06/11/17 07:30 Urine Blood Negative (NEGATIVE) 06/11/17 07:30 Urine Nitrate Negative (NEGATIVE) 06/11/17 07:30 Urine Bilirubin Negative (NEGATIVE) 06/11/17 07:30 Urine Urobilinogen 0.2-1.0 mg/dL (0.2-1.0) 06/11/17 07:30 Ur Leukocyte Esterase Neg [place]/uL (Negative) 06/11/17 07:30 Urine RBC (Auto) < 1 /hpf (0-3) 06/11/17 07:30 Urine Microscopic WBC 3 /hpf (0-5) 06/11/17 07:30 Ur Squamous Epith Cells 1 /hpf (0-5) 06/11/17 07:30 Urine Bacteria Rare (<OCC) 06/11/17 07:30 Blood Type AB POSITIVE 06/13/17 13:25 Blood Type Confirm AB POSITIVE 06/13/17 13:40 Antibody Screen Positive 06/13/17 13:25 Antibody Identification Anti E 06/13/17 13:25 BBK History Checked No verified bt 06/13/17 13:25 Discharge Exam - Head Exam Head Exam: ATRAUMATIC, NORMOCEPHALIC - ENT Exam ENT Exam: Mucous Membranes Moist - Respiratory Exam Respiratory Exam: Clear to PA & Lateral, NORMAL BREATHING PATTERN - Cardiovascular Exam Cardiovascular Exam: REGULAR RHYTHM, +S1, +S2 - GI/Abdominal Exam GI & Abdominal Exam: Normal Bowel Sounds, Soft, Tenderness (mild tender to palpation of RUQ, no rebound tenderness). absent: Distended, Firm, Guarding - Extremities Exam Extremities exam: normal inspection Additional comments: no calves tenderness, no edema - Neurological Exam Neurological exam: Alert, Oriented x3 - Skin Skin Exam: Dry, Intact, Normal Color Discharge Plan - Discharge Medications Prescriptions: Amoxicillin/Clavulanate [Augmentin 875 MG-125 MG] 1 tab PO Q12 #10 tab Omeprazole 40 mg PO DAILY #30 capsule.dr - Follow Up Plan Condition: STABLE Disposition: HOME/ ROUTINE Instructions: Laparoscopic Cholecystectomy (DC) Additional Instructions: Complete all antibiotics. Follow up with Dr. Liz and Dr. Dietrich in 1 week Referrals: Phillip Liz MD [Staff Provider] - Benji Lester MD [Staff Provider] - <Phillip Liz - Last Filed: 06/23/17 10:00> Provider - Provider Date of Admission: 06/11/17 06:31 Attending physician: Phillip Liz MD Hospital Course - Lab Results Lab Results: Micro Results 06/11/17 10:05 Blood Blood Culture - Final NO GROWTH AFTER 5 DAYS 06/11/17 10:05 Blood Gram Stain - Final TEST NOT PERFORMED Most Recent Lab Values WBC 12.3 K/uL (4.8-10.8) H D 06/17/17 04:50 RBC 4.61 Mil/uL (3.80-5.20) 06/17/17 04:50 Hgb 12.0 g/dL (12.0-16.0) 06/17/17 04:50 Hct 38.1 % (34.0-47.0) 06/17/17 04:50 MCV 82.7 fl (81.0-99.0) 06/17/17 04:50 MCH 26.1 pg (27.0-31.0) L 06/17/17 04:50 MCHC 31.6 g/dL (33.0-37.0) L 06/17/17 04:50 RDW 13.8 % (11.5-14.5) 06/17/17 04:50 Plt Count 124 K/uL (130-400) L D 06/17/17 04:50 MPV 12.1 fl (7.2-11.7) H 06/16/17 06:25 Neut % (Auto) 40.1 % (50.0-75.0) L 06/16/17 06:25 Lymph % (Auto) 43.6 % (20.0-40.0) H 06/16/17 06:25 [place] % (Auto) 13.8 % (0.0-10.0) H 06/16/17 06:25 Eos % (Auto) 1.9 % (0.0-4.0) 06/16/17 06:25 Baso % (Auto) 0.6 % (0.0-2.0) 06/16/17 06:25 Neut # 2.9 K/uL (1.8-7.0) 06/16/17 06:25 Lymph # 3.1 K/uL (1.0-4.3) 06/16/17 06:25 [place] # 1.0 K/uL (0.0-0.8) H 06/16/17 06:25 Eos # 0.1 K/uL (0.0-0.7) 06/16/17 06:25 Baso # 0.0 K/uL (0.0-0.2) 06/16/17 06:25 PT 13.3 Seconds (9.8-13.1) H 06/13/17 06:00 INR 1.3 (0.9-1.2) H 06/13/17 06:00 APTT 32.6 Seconds (25.6-37.1) 06/12/17 18:45 pO2 28 mm/Hg (30-55) L 06/11/17 10:03 VBG pH 7.35 (7.32-7.43) 06/11/17 10:03 VBG pCO2 53 mmHg (40-60) 06/11/17 10:03 VBG HCO3 25.6 mmol/L 06/11/17 10:03 VBG Total CO2 30.9 mmol/L (22-28) H 06/11/17 10:03 VBG O2 Sat (Calc) 60.7 % (40-65) 06/11/17 10:03 VBG Base Excess 2.5 mmol/L (0.0-2.0) H 06/11/17 10:03 VBG Potassium 4.1 mmol/L (3.6-5.2) 06/11/17 10:03 Sodium 140.0 mmol/L (132-148) 06/11/17 10:03 Chloride 109.0 mmol/L (98-107) H 06/11/17 10:03 Glucose 90 mg/dL (65-105) 06/11/17 10:03 Lactate 1.7 mmol/L (0.7-2.1) 06/11/17 10:03 FiO2 21.0 % 06/11/17 10:03 Sodium 143 mmol/l (132-148) 06/17/17 04:50 Potassium 3.5 MMOL/L (3.6-5.0) L 06/17/17 04:50 Chloride 107 mmol/L (98-107) 06/17/17 04:50 Carbon Dioxide 25 mmol/L (22-30) 06/17/17 04:50 Anion Gap 15 (10-20) 06/17/17 04:50 BUN 4 mg/dl (7-17) L 06/17/17 04:50 Creatinine 0.8 mg/dL (0.7-1.2) 06/17/17 04:50 Est GFR ( Amer) > 60 06/17/17 04:50 Est GFR (Non-Af Amer) > 60 06/17/17 04:50 Random Glucose 78 mg/dL (65-105) 06/17/17 04:50 Calcium 8.2 mg/dL (8.4-10.2) L 06/17/17 04:50 Iron 29 ug/dL (37-170) L 06/13/17 14:30 TIBC 256 ug/dL (250-450) 06/13/17 14:30 % Saturation 11 % (20-55) L 06/13/17 14:30 Ferritin 72.6 ng/mL 06/14/17 06:30 Total Bilirubin 0.6 mg/dl (0.2-1.3) 06/17/17 04:50 AST 46 U/L (14-36) H D 06/17/17 04:50 ALT 67 U/L (9-52) H 06/17/17 04:50 Alkaline Phosphatase 125 U/L (38-126) 06/17/17 04:50 Total Protein 7.6 G/DL (6.3-8.2) 06/17/17 04:50 Albumin 3.6 g/dL (3.5-5.0) 06/17/17 04:50 Globulin 4.0 gm/dL (2.2-3.9) H 06/17/17 04:50 Albumin/Globulin Ratio 0.9 (1.0-2.1) L 06/17/17 04:50 Triglycerides 80 mg/DL (0-149) 06/12/17 10:30 Cholesterol 183 mg/dL (0-199) 06/12/17 10:30 LDL Cholesterol Direct 138 mg/dL (0-129) H 06/12/17 10:30 HDL Cholesterol 46 MG/DL (30-70) 06/12/17 10:30 Lipase 28 U/L (23-300) 06/13/17 06:00 Vitamin B12 818 pg/mL (239-931) 06/12/17 10:30 Folate > 20.0 ng/mL 06/12/17 10:30 Thyroxine (T4) 8.57 ug/dl (5.5-11.0) 06/12/17 10:30 Reverse T3 19 ng/dL (8-25) 06/12/17 11:00 Total T3 0.709 nmol/L (1.49-2.60) L 06/12/17 10:30 T3 Uptake 35.2 % (23.0-41.0) 06/12/17 10:30 TSH 3rd Generation 2.30 mIU/ML (0.46-4.68) 06/12/17 10:30 Venous Blood Potassium 4.1 mmol/L (3.6-5.2) 06/11/17 10:03 Urine Color Yellow (YELLOW) 06/11/17 07:30 Urine Clarity Clear (Clear) 06/11/17 07:30 Urine pH 8.0 (5.0-8.0) 06/11/17 07:30 Ur Specific [place] 1.005 (1.003-1.030) 06/11/17 07:30 Urine Protein Negative mg/dL (NEGATIVE) 06/11/17 07:30 Urine Glucose (UA) Neg mg/dL (Normal) 06/11/17 07:30 Urine Ketones Negative mg/dL (NEGATIVE) 06/11/17 07:30 Urine Blood Negative (NEGATIVE) 06/11/17 07:30 Urine Nitrate Negative (NEGATIVE) 06/11/17 07:30 Urine Bilirubin Negative (NEGATIVE) 06/11/17 07:30 Urine Urobilinogen 0.2-1.0 mg/dL (0.2-1.0) 06/11/17 07:30 Ur Leukocyte Esterase Neg [place]/uL (Negative) 06/11/17 07:30 Urine RBC (Auto) < 1 /hpf (0-3) 06/11/17 07:30 Urine Microscopic WBC 3 /hpf (0-5) 06/11/17 07:30 Ur Squamous Epith Cells 1 /hpf (0-5) 06/11/17 07:30 Urine Bacteria Rare (<OCC) 06/11/17 07:30 Blood Type AB POSITIVE 06/13/17 13:25 Blood Type Confirm AB POSITIVE 06/13/17 13:40 Antibody Screen Positive 06/13/17 13:25 Antibody Identification Anti E 06/13/17 13:25 BBK History Checked No verified bt 06/13/17 13:25
--- NOTE | 2017-06-17 15:13 | CP.PCM.PCO ---
Physician Communication Note - Physician Communication Note Physician Communication Note: Pt seen and cleared for discharge home by Dr. Lester and Dr. Sylvester
[2017-06-17] MEDS: Lactated Ringer's 1,000 ML IV SCH (16:18)
--- NOTE | 2017-06-21 05:17 | OP ---
PROCEDURE DATE: 06/16/2017 PREOPERATIVE DIAGNOSES: 1. Cholecystis and cholelithiasis. 2. Choledocholithiasis. 3. Status post endoscopic retrograde cholangiopancreatography and removal of the stone. POSTOPERATIVE DIAGNOSES: 1. Cholecystis and cholelithiasis. 2. Choledocholithiasis. 3. Status post endoscopic retrograde cholangiopancreatography and removal of the stone. PROCEDURE: Laparoscopic cholecystectomy. SURGEON: Aditya Lester MD TRAVEL WRITER: Darell Nix, PGY3, resident. TYPE OF ANESTHESIA: General endotracheal tube anesthesia. ESTIMATED BLOOD LOSS: Around 10 mL. DRAIN: None. PATHOLOGY: Gallbladder with gallstone was sent to the pathology. COMPLICATIONS: None. INTRAOPERATIVE FINDINGS: The patient had changes of chronic cholecystis and cholelithiasis. On intraoperative steps, this is a 56-year-old female was diagnosed with cholelithiasis and possible chronic cholecystis and the patient is status post ERCP for possible stone, and then the patient also had ITP, and after transfusion of the platelet, the patient was brought to the OR, placed supine on the operating table. After induction of the anesthesia, the abdomen was prepped and draped in the usual sterile fashion. The supraumbilical transverse 1.5 cm incision was made. After incising skin and subcutaneous tissue, the fascia was incised and the Al[place] port was placed. Pneumo was created. A 12-mm port was placed in the midline below costal margin, and two 5-mm ports were placed in the midclavicular and anterior axillary line. After the grasper and [place]ta trocar were introduced and gallbladder was retracted cranially, Calot triangle dissection was done. The cystic artery was dissected. A critical view of the safety was identified and the cystic duct and cystic artery were clipped at three places and cut in between two clips nearby gallbladder. The gallbladder was dissected free from the gallbladder fossa, taken in an EndoCatch bag, taken out through the umbilical port site and sent available for the pathology. The patient tolerated the procedure well. Count of the instrument was correct. There were no apparent complication. Benji Lester MD
== END 2017-06-17 17:03 | disposition home or self-care (01) | DRG 418 ==
LOC: H.ER 05:21 → H.EROBSV 06:31 → OBSVTOIN 06:31 → H.ERHOLD 15:10 → H.MEDSURG1 16:28
PROVIDERS: ADMIT Internal Medicine; ATTEND Internal Medicine
PROC: 0FJB8ZZ Inspection of Hepatobiliary Duct, Via Natural or Artificial Opening Endoscopic (ICD-10-PCS; 2017-06-14)
PROC: 30233S1 Transfusion of Nonautologous Globulin into Peripheral Vein, Percutaneous Approach (ICD-10-PCS; principal; 2017-06-15)
PROC: 0FT44ZZ Resection of Gallbladder, Percutaneous Endoscopic Approach (ICD-10-PCS; 2017-06-16)
DX: K80.44 Calculus of bile duct with chronic cholecystitis without obstruction (principal); D69.3 Immune thrombocytopenic purpura; M32.9 Systemic lupus erythematosus, unspecified; G35 Multiple sclerosis; K80.10 Calculus of gallbladder with chronic cholecystitis without obstruction; D50.9 Iron deficiency anemia, unspecified; E03.9 Hypothyroidism, unspecified; I10 Essential (primary) hypertension; Z93.3 Colostomy status; E66.9 Obesity, unspecified; Z68.30 Body mass index [BMI] 30.0-30.9, adult; E78.00 Pure hypercholesterolemia, unspecified; F32.9 Major depressive disorder, single episode, unspecified; F41.9 Anxiety disorder, unspecified; J45.909 Unspecified asthma, uncomplicated; M19.90 Unspecified osteoarthritis, unspecified site